=== PATIENT | male | born 1955 | race Caucasian/White ===

== ENCOUNTER → 2020-09-17 12:37 | Outpatient (CLI) | payer MEDICARE, SELFPAY ==
[2020-09-17 13:24] LABS: Basophils # 0.1 K/mm3 (0-0.2); Basophils % 0.9 % (0.1-2.0); Eosinophils # 0.2 K/mm3 (0.0-0.4); Eosinophils % 1.8 % (0.1-12.0); Hematocrit 46.2 % (42.0-52.0); Hemoglobin 15.6 g/dL (14.1-18.0); Lymphocytes # 2.3 K/mm3 (0.7-4.5); Mean Corpuscular HGB Conc 33.7 g/dL (31.8-35.4); Mean Corpuscular Hemoglobin 28.6 pg (27.0-31.2); Mean Platelet Volume 7.9 fl (7.4-10.4); Monocytes # 0.4 K/mm3 (0.1-1.0); Monocytes % 4.7 % (1.7-9.3); Neutrophils # 6.3 K/mm3 (1.8-7.8); Neutrophils % 67.6 % (37.0-80.0); Platelet Count 223 K/mm3 (142-424); Red Blood Count 5.44 M/mm3 (4.60-6.20); Red Cell Distribution Width 15.1 % (11.5-17.5); White Blood Count 9.3 K/mm3 (4.8-10.8)
[2020-09-17 13:35] LABS: Chloride 105 mmol/L (98-107); Potassium 4.7 mmoL/L (3.5-5.1); Sodium 139 mmol/L (136-145)
[2020-09-17 13:37] LABS: Bilirubin,Unconjugated 0.2 mg/dL (0.0-1.1); Blood Urea Nitrogen 20 mg/dl (9-20); Estimated Glomerular Filt Rate 97 ml/min (>60); GFR (African American) 117 ML/MIN (>60)
[2020-09-17 13:38] LABS: Alanine Aminotransferase 24 U/L (12-78); Albumin Level 4.7 g/dl (3.5-5.0); Alkaline Phosphatase 113 U/L (38-126); Anion Gap 17.7 mEq/L (5-15); Aspartate Amino Transferase 29 U/L (17-59); Bilirubin,Direct 0.5 mg/dl (0.0-0.4); Bilirubin,Indirect 0.2 mg/dL (0.0-0.9); Bilirubin,Total 0.7 mg/dl (0.2-1.3); Calcium 10.1 mg/dl (8.4-10.2); Carbon Dioxide 21 mmol/L (22.0-30.0); Chol/HDL Ratio 2.7 (1-3.5); Cholesterol 128 mg/dl (140-200); Glucose 247 mg/dl (74-100); HDL Cholesterol 47 mg/dl (40-60); Total Protein,Serum 7.6 g/dl (6.3-8.2); Triglycerides 286 mg/dl (30-150); VLDL Cholesterol 57 mg/dL (0-40)
[2020-09-17 13:50] LABS: Direct LDL Cholesterol 51.13 mg/dL (100-129)
[2020-09-17 13:55] LABS: Free T4 (Free Thyroxine) 1.01 ng/dl (0.78-2.19)
== END ==
PROVIDERS: Visit Provider Physician Assistant
DX: E78.2 Mixed hyperlipidemia (principal); I10 Essential (primary) hypertension; I25.10 Atherosclerotic heart disease of native coronary artery without angina pectoris; R00.2 Palpitations
CPT/HCPCS: 36415; 80048; 80061; 80076; 84439; 84443; 85025

== ENCOUNTER → 2020-09-27 06:13 | Outpatient (CLI) | payer MEDICARE, SELFPAY ==
--- NOTE | 2020-09-27 | CA_ITS ---
APPROVED REPORT Exam: Exercise Treadmill Technologist: Natalie Hayden, Ht: 5 ft 6 in Wt: 155 lbs BSA: 1.79 m2 HR: 67 bpm BP: 154/101 mmHg Rhythm: NSR, RBBB Medical History Medical History: HTN, Hyperlipidemia, Diabetic ??? Insulin Medications: Aspirin,,,,, Metformin,,,,, Carvedilol,,,,, JaRDiance,,,,, AtorvaASTATIN,,,,, Cardiac Risk Factors: HTN, Hyperlipidemia, Diabetes (insulin) Stress Test Details Test: Mariano HR Resting HR: 76 bpm Max Heart Rate (APMHR): 155 bpm Max HR Achieved: 160 bpm Target HR (85% APMHR): 131 bpm % of APMHR: 103 Recovery HR: 140 bpm BP Resting BP: 153/96 mmHg Max BP: 201/118 mmHg Recovery BP: 198.0/110.0 mmHg ECG Resting ECG: NSR, RBBB Clinical Exercise duration: 06:31 min Highest Stage Achieved: Exercise capacity: 7.0 METs Stress ECG Conclusion Pt excercised 6:31 on Mariano Protocol. Pt did not experince any CP. Rare PVC noted, narrow complex tachycardia in early recovery, PACs in recovery. Allowing for motion artifact and some changes in lead 3. The ST response to exercise is within normal .normal GXT. Myoview images reported separately. Test Summary REST . . . . . . . Sitting REST . . . . . . . Standing REST 04:45 0.0 0.0 76 . 153/ 96 . . Stage 1 01:00 10.0 1.7 119 . . . . Stage 1 02:00 10.0 1.7 124 . . . . Stage 1 03:00 10.0 1.7 126 . 164/ 96 . . Stage 2 01:00 12.0 2.5 134 . . . . Stage 2 02:00 12.0 2.5 146 . . . . Stage 2 . . . . . . . Cardiolite injected Stage 2 03:00 12.0 2.5 160 . . . . Stage 3 00:31 14.0 3.4 76 . . . Stop exercise at 06:31 RECOVERY 01:00 0.0 0.0 145 . . . . RECOVERY 02:00 0.0 0.0 125 . 198/110 . . RECOVERY 03:00 0.0 0.0 118 . 201/118 . . RECOVERY 04:00 0.0 0.0 79 . 201/118 . . RECOVERY 05:00 0.0 0.0 103 . 178/ 85 . . RECOVERY 06:00 0.0 0.0 96 . 155/ 88 . . RECOVERY 07:00 0.0 0.0 78 . 155/ 88 . . RECOVERY 07:21 0.0 0.0 81 . 155/ 88 . . Electronically signed by : Bebeto Keene MD 09/27/2020 14:46:31
--- NOTE | 2020-09-27 06:35 | NM_ITS ---
APPROVED REPORT Exam: Nuclear Stress Test Indication: Chest pain, HTN, DM, CAD Patient Location: Outpatient Stress Tech: Shari Schmidt [place] Tech:Tessie DominguezHARMAN RT(R)(N) Ht: 5 ft 6 in Wt: 150 lbs HR: 76 bpm BP: 153/96 mmHg BSA: 1.77 m2 BMI: 24.2 History: Chest pain, HTN, DM, Procedure: Patient exercised on Mariano protocol 6:31 minutes and sec, resting heart rate 76 bpm, resting blood pressure 153/96 mmHg, with exercise maximum heart rate achived was 160 bpm which is 103 % of the maximum predicted heart rate and blood pressure was 201/118 mmHg. Test was stopped due to SOA. Patient denied any complaint of chest pain. Patient has Adequate exercise capacity, achieved 7.0 METs of workload on treadmill, the blood pressure response to exercise was Hypertensive. Electrocardiogram Resting electrocardiogram shows sinus rhythm right ventricular conduction delay, with exercise there is less than 1.[address] segment depression noted from the baseline EKG. The EKG portion of the exercise Myoview is negative for ischemia. Cardiac Stress and Resting SPECT Images: Cardiac Stress and Resting SPECT images were obtained using technetium 99m Myoview 30.0 mCi stress and 10.56 mCi at rest. Gated SPECT for analysis of segmental wall motion and calculation of the ejection fraction also done. Prone images were also obtained. Cardiac stress and resting SPECT images show uniform myocardial activity without segmental perfusion abnormality, however computer derived ejection fraction is 38% with no regional wall motion abnormality. Right ventricle is mildly enlarged with normal contractility. Conclusion: 1. The EKG portion of the exercise Myoview is negative for ischemia, patient has adequate exercise capacity achieved 7 mets of workload on treadmill, the blood pressure response to exercise was hypertensive, test was stopped due to shortness of breath 2. No scintigraphic evidence of reversible ischemia seen, computer derived ejection fraction is 38% with no regional wall motion abnormality, right ventricle is mildly enlarged with normal contractility. 3. Abnormal exercise Myoview study due to low ejection fraction noted in the study. Electronically signed by : Bebeto Keene MD 09/27/2020 15:13:49
--- NOTE | 2020-09-27 07:21 | CA_ITS ---
APPROVED REPORT Model Maker Firearms: CLAY Laterality: Bilateral Study Quality: Good Indications: family hx of [id number]. Pt is a non-smoker. CAD, Palpitations Doppler Spectral Velocity Analysis ECA (R) 59.90/8.60 cm/s ECA (L) 75.10/17.30 cm/s dICA (R) 78.60/28.90 cm/s dICA (L) 73.20/30.20 cm/s Karlene (R) 40.60/23.00 cm/s Karlene (L) 70.00/27.00 cm/s pICA (R) 45.40/16.60 cm/s pICA (L) 52.00/12.20 cm/s dCCA (R) 68.40/19.20 cm/s dCCA (L) 70.60/16.70 cm/s mCCA (R) 70.60/17.10 cm/s mCCA (L) 66.10/18.00 cm/s pCCA (R) 72.20/14.40 cm/s pCCA (L) 100.80/16.70 cm/s Vert (R) 23.50/3.20 cm/s Vert (L) 33.40/12.20 cm/s ICA/CCA 1.15 ICA/CCA 1.04 Findings Duplex evaluation demonstrates no evidence of hemodynamically significant stenosis of the bilateral Internal Carotid Arteries. Duplex evaluation demonstrates antegrade flow of the bilateral Vertebral Arteries. Duplex evaluation demonstrates stenosis of the right proximal internal carotid artery <20% with PSV <140 cm/sec, EDV <100 cm/sec, and IC/CC Ratio <4.0. Duplex evaluation demonstrates stenosis of the left proximal internal carotid artery <20% with PSV <140 cm/sec, EDV <100 cm/sec, and IC/CC Ratio <4.0. Conclusion Duplex evaluation demonstrates no evidence of hemodynamically significant stenosis of the bilateral Internal Carotid Arteries. Duplex evaluation demonstrates antegrade flow of the bilateral Vertebral Arteries. Duplex evaluation demonstrates stenosis of the right proximal internal carotid artery <20% with PSV <140 cm/sec, EDV <100 cm/sec, and IC/CC Ratio <4.0. Duplex evaluation demonstrates stenosis of the left proximal internal carotid artery <20% with PSV <140 cm/sec, EDV <100 cm/sec, and IC/CC Ratio <4.0. Electronically signed by : Gilberto Veloz MD 09/27/2020 15:07:21
--- NOTE | 2020-09-27 07:21 | CA_ITS ---
APPROVED REPORT EXAM: Comprehensive 2D, Doppler, and color-flow Echocardiogram Swing Saw Operator: [place]ia Fuentes RVT Ht: 5 ft 6 in Wt: 155lbs BSA: 1.79 BP: 1320/92 mmHg Indications: PALPS,CAD,DM,HTN,HLD 2D Dimensions LVOT 2.23 cm (M/F) 1.5-2.5 LA Volume 22.00 mL LA Volume Index 12.29 mL/m2 (M/F) 16-34 M-Mode Dimensions RVDd 3.10 cm (0.9-2.6) LA Diam 2.85 cm (1.9-4.0) LVDd 4.18 cm (3.5-5.7) Ao Diam 3.91 cm (2.0-3.7) LVDs 2.94 cm (3.5-5.7) IVSd 1.53 cm (0.6-1.1) PWd 0.84 cm (0.6-1.1) EF (Teich) 57.10% FS 29.70% EDV (Teich) 77.70 mL TAPSE 1.32 (<1.7) ESV (Teich) 33.30 mL LV Diastology E Decel Time 193.00 (160-240 msec) E/A Ratio 0.7 MED E' 14.00 (< 7 cm/sec) E'/MED E' Ratio 4.47 (>14) LAT E' 6.90 (<10 cm/sec) E/LAT E' Ratio 9.07 (>14) Aortic Valve AO Peak GR. 2.20 mmHg Mitral Valve MV E Max Colton. 63.00 (40-130 cm/s) MV A Velocity 95.00 (40-130 cm/s) E/A Ratio 0.66 MV Decel. Time 193.00 (160-240 ms) MV PHT 57.00 ms Pulmonary Valve PV Peak Velocity 75.00 (50-150 cm/s) Left Ventricle Technically difficult study because of the patient fact in poor acoustic windows. Left atrium is mildly enlarged, left ventricle is normal size, mild concentric left ventricular hypertrophy, visually estimated ejection fraction is approximately 40 to 45%, endocardial surfaces are very poorly visualized. Doppler evidence of impaired LV relaxation seen. Tissue Doppler is inconclusive. Right Ventricle Right atrium and right ventricle mildly enlarged with normal contractility. Aortic Valve Aortic valve is thickened and calcified without Doppler evidence of aortic stenosis or aortic insufficiency. Mitral Valve Mitral valve is grossly normal, there is mild mitral regurgitation. Tricuspid Valve Tricuspid grossly normal, there is mild tricuspid regurgitation. Tricuspid regurgitation jet velocity is inadequate for calculation of the right ventricular systolic pressure. Pulmonic Valve Pulmonic valve is poorly visualized. Great Vessels Aortic root is normal size. Inferior vena cava is poorly visualized. Pericardium No significant pericardial effusion noted. Conclusion 1. Technically difficult study because of the patient factors and poor acoustic windows. 2. Mildly enlarged left atrium, normal left ventricular size, mild concentric left ventricular hypertrophy, visually estimated ejection fraction 40 to 45%, Doppler evidence of impaired LV relaxation seen. 3. Mild mitral and tricuspid regurgitation. 4. No significant pericardial effusion noted. Electronically signed by : Bebeto Keene MD 09/27/2020 15:22:12
--- NOTE | 2020-09-27 13:22 | HMH.ITSHM ---
Current Home Medications as stated by this patient Ashkan Weaver or insurance claim representative. []METFORMIN CARVEDILOL ATORVASTATIN ASA
== END ==
PROVIDERS: PCP Internal Medicine; Visit Provider Physician Assistant
DX: E78.2 Mixed hyperlipidemia (principal); I10 Essential (primary) hypertension; I25.10 Atherosclerotic heart disease of native coronary artery without angina pectoris; R00.2 Palpitations; Z82.49 Family history of ischemic heart disease and other diseases of the circulatory system; R09.89 Other specified symptoms and signs involving the circulatory and respiratory systems
CPT/HCPCS: 78452; 93017; 93306; 93880; A9502

== ENCOUNTER → 2020-10-08 10:51 | Outpatient (CLI) | payer MEDICARE, SELFPAY | PROVIDERS: PCP Internal Medicine; Visit Provider Physician Assistant | DX: R00.2 Palpitations (principal); I25.10 Atherosclerotic heart disease of native coronary artery without angina pectoris; I10 Essential (primary) hypertension; E78.2 Mixed hyperlipidemia | CPT/HCPCS: 93225; 93226 ==

== ENCOUNTER 2020-10-09 07:28 | Day surgery (SDC) | payer MEDICARE, SELFPAY ==
[2020-10-09] VITALS (14 sets, daily range): BP systolic 109–135; BP diastolic 72–100; PULSE 67–86; RESP 18–20; TEMP 36.3–37; O2SAT 95–99; BMI 25.7
--- NOTE | 2020-10-09 07:18 | IR_ITS ---
APPROVED REPORT Patient Location: Outpatient Executive Account Manager: HARMAN Payton RT (R) PROCEDURES Left heart catheterization Left ventriculogram Selective coronary angiogram Drug-eluting stent deployment to the proximal and mid LAD INDICATION Coronary artery disease, Angina pectoris, Ischemic cardiomyopathy ejection fraction 30%, Informed consent was obtained prior to the procedure. COMPLICATIONS None Estimated Blood Loss: Less than 10 mls TECHNIQUE One percent lidocaine used to anesthetize the right anterior aspect of the wrist. The right radial artery was accessed via the Seldinger technique. A 6 Citizen Of [place] sheath was placed in the right radial artery. 2.5 mg of verapamil, 800 mcg of nitroglycerin, 1mg Lidocaine and 5000 U Heparin were given through the arterial sheath. The trap catheter was also used to perform left heart catheterization, left ventriculogram and selective coronary angiogram. At the end of the diagnostic angiogram therapeutic heparin was administered giving a therapeutic ACT and and I Ayla left guide catheter was placed in the left main artery. A Choice PT extra-support wire was placed in the distal LAD. Primary stent delivery cannot be performed therefore a 2.5 x 27 mm balloon was taken at 24 robert to predilate the stenosis. Stenting could still not be performed and an area of focal either in-stent restenosis or previous under deployment of a mid LAD stent prevented delivery of the stent. A 3 mm x 12 mm noncompliant balloon was taken at 24 robert and still did not reduce the stenosis. A 3.25 x 8 mm balloon was then deployed in this area at 28 robert still not reducing the stenosis. A 3.5 x 8 mm noncompliant balloon was deployed at 28 robert still not reducing the stenosis. A 3.75 x 6 mm noncompliant balloon was deployed at 30 robert which eventually reduce the stenosis and allowed delivery of a 3 mm x 38 mm resolute [place] stent to be deployed at 20 robert. An additional 3.5 x 12 mm resolute Liam stent was placed proximal to the first stent yet distal to the first diagonal artery but proximal to the first septal ross carrier driver making it a proximal LAD stent delivery. This was deployed at 20 robert. BASILIO-3 flow was present before and after the procedure. After achieving excellent angiographic results the apparatus was removed the sheath was removed and hemostasis was achieved using TR banding patient was transferred to the postop already in stable condition ANGIOGRAPHIC RESULTS The left main artery Normal The left anterior descending artery Has an ostial 20 to 30% stenosis most likely representing in-stent restenosis followed by an 80 to 90% focal stenosis with additional concentric 80 to 90% mid vessel stenoses. Distal to the stent the LAD is widely patent. The first diagonal artery is a moderate-sized vessel and widely patent. The circumflex artery Is a nondominant yet still large vessel which is proximally patent with 10% stenoses and a 30% stenosis in the proximal portion of the first and second obtuse marginal artery The right coronary artery Is dominant and has proximal tandem 30% stenoses with mild distal 10 to 20% stenosis The MAK ventriculogram reveals Dilated with anterior hypokinesis estimate ejection fraction 40% The left ventricular end-diastolic pressure 20 mmHg IMPRESSION Severe to critical proximal to mid LAD disease as described above Successful stenting the proximal to mid LAD severe to critical disease reduced to 0% with 2 drug-eluting stents placed in a contiguous manner Left ventricular dysfunction Mild elevated LVEDP PLAN 1. Dual antiplatelet therapy 2. Risk factor modification 3. Standard therapy for ischemic heart disease with ischemic left ventricular dysfu
[2020-10-09 08:57] LABS: Coronavirus 19, PCR Not Detected (NotDetected); Influenza A, PCR Not Detected (NotDetected); Influenza B, PCR Not Detected (NotDetected)
[2020-10-09 09:04] LABS: Basophils # 0.1 K/mm3 (0-0.2); Eosinophils # 0.2 K/mm3 (0.0-0.4); Eosinophils % 2.5 % (0.1-12.0); Hematocrit 48.2 % (42.0-52.0); Lymphocytes % 25.9 % (10-50); Mean Corpuscular HGB Conc 33.2 g/dL (31.8-35.4); Mean Corpuscular Volume 87.5 fl (80-94); Mean Platelet Volume 8.2 fl (7.4-10.4); Monocytes # 0.6 K/mm3 (0.1-1.0); Neutrophils % 63.7 % (37.0-80.0); Platelet Count 257 K/mm3 (142-424); Red Blood Count 5.51 M/mm3 (4.60-6.20); Red Cell Distribution Width 14.9 % (11.5-17.5); White Blood Count 7.8 K/mm3 (4.8-10.8)
[2020-10-09 09:06] LABS: Chloride 104 mmol/L (98-107); Potassium 4.6 mmoL/L (3.5-5.1); Sodium 138 mmol/L (136-145)
[2020-10-09 09:09] LABS: Anion Gap 14.6 mEq/L (5-15); Blood Urea Nitrogen 18 mg/dl (9-20); Calcium 9.1 mg/dl (8.4-10.2); Carbon Dioxide 24 mmol/L (22.0-30.0); Creatinine Clearance Estimated 75 mL/min (50-200); Estimated Glomerular Filt Rate 113 ml/min (>60); GFR (African American) 137 ML/MIN (>60); Glucose 200 mg/dl (74-100)
--- NOTE | 2020-10-09 12:23 | SUR.PHASEII ---
1220-report received from JUD Estrella at this time
[2020-10-09 14:03] LABS: CATHL Activated Clotting Time > 400 SEC (74-125)
--- NOTE | 2020-10-09 14:06 | HMH.PHACLD ---
Ashkan Weaver has received discharge medication counseling on the following medications: PATIENT STARTED ON ENTRESTO 24/26 MG BID AND BRILINTA 90 MG BID. PATIENT IS ALREADY TAKING CARVEDILOL 12.5 MG BID, ATORVASTATIN 10 MG HS, AND ASPIRIN 81 MG DAILY.
--- NOTE | 2020-10-09 14:13 | SUR.PHASEII ---
1355-radial band removed at this time, cleaned with chloraprep and sterile 2x2 dressing and tegaderm placed to site, no s/s of drainage, bleeding or hematoma noted at site, vss, pharamacy at bedside at this time for discharge medication instructions
== END 2020-10-09 14:00 | disposition home or self-care (01) ==
LOC: CATHLAB 07:30
PROVIDERS: PCP Internal Medicine; Visit Provider Internal Medicine
DX: R93.1 Abnormal findings on diagnostic imaging of heart and coronary circulation (principal); R94.30 Abnormal result of cardiovascular function study, unspecified; E11.9 Type 2 diabetes mellitus without complications; Z79.84 Long term (current) use of oral hypoglycemic drugs; I25.118 Atherosclerotic heart disease of native coronary artery with other forms of angina pectoris; I25.5 Ischemic cardiomyopathy; T82.855A Stenosis of coronary artery stent, initial encounter; I10 Essential (primary) hypertension; Y83.1 Surgical operation with implant of artificial internal device as the cause of abnormal reaction of the patient, or of later complication, without mention of misadventure at the time of the procedure; Z20.822 Contact with and (suspected) exposure to COVID-19
CPT/HCPCS: 80048; 85025; 85347; 92928; 93458; 99152; 99153; C1725; C1769; C1874; C1876; C9600; J1644; U0003

== ENCOUNTER 2020-10-16 10:05 | Outpatient (RCR) | payer MEDICARE, SELFPAY | END 2020-12-13 10:10 | disposition home or self-care (01) | LOC: PT 10:05 | PROVIDERS: Visit Provider Internal Medicine | DX: I25.10 Atherosclerotic heart disease of native coronary artery without angina pectoris (principal); Z95.5 Presence of coronary angioplasty implant and graft | CPT/HCPCS: 93798 ==

== ENCOUNTER → 2020-10-22 07:43 | Outpatient (CLI) | payer MEDICARE, SELFPAY ==
[2020-10-22 09:25] LABS: Basophils # 0.1 K/mm3 (0-0.2); Basophils % 0.8 % (0.1-2.0); Eosinophils # 0.2 K/mm3 (0.0-0.4); Eosinophils % 2.4 % (0.1-12.0); Hematocrit 46.6 % (42.0-52.0); Hemoglobin 15.4 g/dL (14.1-18.0); Lymphocytes % 26.3 % (10-50); Mean Corpuscular Hemoglobin 29.6 pg (27.0-31.2); Mean Corpuscular Volume 89.7 fl (80-94); Mean Platelet Volume 7.1 fl (7.4-10.4); Monocytes # 0.6 K/mm3 (0.1-1.0); Monocytes % 8.5 % (1.7-9.3); Neutrophils # 4.6 K/mm3 (1.8-7.8); Platelet Count 218 K/mm3 (142-424); Red Cell Distribution Width 14.8 % (11.5-17.5); White Blood Count 7.4 K/mm3 (4.8-10.8)
[2020-10-22 10:30] LABS: Chloride 103 mmol/L (98-107); Potassium 4.5 mmoL/L (3.5-5.1); Sodium 137 mmol/L (136-145)
[2020-10-22 10:33] LABS: Anion Gap 15.5 mEq/L (5-15); Blood Urea Nitrogen 24 mg/dl (9-20); Calcium 8.9 mg/dl (8.4-10.2); Carbon Dioxide 23 mmol/L (22.0-30.0); Estimated Glomerular Filt Rate 97 ml/min (>60); GFR (African American) 117 ML/MIN (>60); Glucose 184 mg/dl (74-100)
== END ==
PROVIDERS: Visit Provider Internal Medicine
DX: I25.10 Atherosclerotic heart disease of native coronary artery without angina pectoris (principal); Z95.5 Presence of coronary angioplasty implant and graft
CPT/HCPCS: 36415; 80048; 85025

== ENCOUNTER → 2020-12-05 11:29 | Outpatient (CLI) | payer MEDICARE, SELFPAY | PROVIDERS: PCP Internal Medicine; Visit Provider Nurse Practitioner | DX: Z20.822 Contact with and (suspected) exposure to COVID-19 (principal) | CPT/HCPCS: C9803; U0003; U0005 ==

== ENCOUNTER 2020-12-21 09:58 | Emergency (ER) | payer MEDICARE, SELFPAY ==
[2020-12-21] VITALS (8 sets, daily range): BP systolic 102–145; BP diastolic 68–92; PULSE 75–119; RESP 18–28; TEMP 36.8; O2SAT 91–95; BMI 25.8
--- NOTE | 2020-12-21 10:06 | ECG_ITS ---
APPROVED REPORT Exam: Resting ECG HR:118 bpm ECG Measurements Heart Rate 118 AXES TN 156 P -22 QRSd 132 QRS 125 QT 344 T -11 QTc 482 Conclusion Sinus tachycardia Right bundle branch block Abnormal ECG Electronically signed by : Jamal Oleary MD 12/21/2020 13:50:22
--- NOTE | 2020-12-21 10:23 | XR_ITS ---
PROCEDURE: XR CHEST PORTABLE CLINICAL HISTORY: cough COMPARISON: No exams were available for comparison FINDINGS: The cardiomediastinal silhouette and pulmonary vascularity are within normal limits. There is mild aortic tortuosity. The lungs are clear without infiltrates, suspicious nodules, or pleural effusions. There monitor lines overlying the chest. No acute bony abnormalities. IMPRESSION: No acute findings. Dictated by: Dr. Hussein Brown MD 12/21/2020 10:56 Dr. Hussein Brown MD in [place] 12/21/2020 10:56
--- NOTE | 2020-12-21 10:34 | HMH.EDEPIS ---
ED Disposition Clinical Impression: Epistaxis Atrial flutter Qualifiers: Atrial flutter type: typical Qualified Code(s): I48.3 - Typical atrial flutter Disposition: Home, Self-Care Condition on Discharge: Good Instructions: DI for Nosebleed Referrals: Yunior Langford [Primary Care Provider] - - Critical Care Critical Care Time: No Attestation: On 12/21/20, the high probability of a clinically significant, sudden or life threatening deterioration of the following system(s) required my full and direct attention, intervention and personal management. The time I documented below is in addition to time spent performing reported procedures but includes the following listed in this critical care notation. Medical Decision Making - Medical Records Medical records reviewed: Yes: I reviewed the patient's medical records. - Wayne Inquiry Pt receiving controlled substance: No Vital Signs: 12/21/20 09:59 12/21/20 10:30 12/21/20 11:01 Temperature 98.3 F Temperature Source Oral Pulse Rate 119 H 111 H Pulse Rate [Left Radial] 118 H Respiratory Rate 18 18 19 Blood Pressure 105/68 L 117/79 Blood Pressure [Left Arm] 102/79 L Blood Pressure Mean 76 87 Blood Pressure Mean [Left Arm] 86 Blood Pressure Source [Left Arm] Automatic Cuff Blood Pressure Position [Left Arm] Sitting 02 Sat by Pulse Oximetry 94 L 94 L 95 Oxygen Delivery Method Room Air 12/21/20 11:23 12/21/20 11:26 12/21/20 11:30 Temperature Temperature Source Pulse Rate 115 H 100 H 100 H Pulse Rate [Left Radial] Respiratory Rate 28 H 22 20 Blood Pressure 142/88 H 141/85 H 139/92 H Blood Pressure [Left Arm] Blood Pressure Mean 97 95 102 Blood Pressure Mean [Left Arm] Blood Pressure Source [Left Arm] Blood Pressure Position [Left Arm] 02 Sat by Pulse Oximetry 93 L 91 L 94 L Oxygen Delivery Method 12/21/20 12:00 Temperature Temperature Source Pulse Rate 80 Pulse Rate [Left Radial] Respiratory Rate 22 Blood Pressure 145/83 H Blood Pressure [Left Arm] Blood Pressure Mean 92 Blood Pressure Mean [Left Arm] Blood Pressure Source [Left Arm] Blood Pressure Position [Left Arm] 02 Sat by Pulse Oximetry 93 L Oxygen Delivery Method - Lab Data Lab Results 12/21/20 10:34: WBC 6.8, RBC 4.69, Hgb 13.5 L, Hct 41.7 L, MCV 88.8, MCH 28.7, MCHC 32.3, RDW 15.5, Plt Count 262, MPV 9.8, Neut % (Auto) 64.8, Lymph % (Auto) 21.3, Pershing % (Auto) 11.4 H, Eos % (Auto) 1.8, Baso % (Auto) 0.6, Neut # (Auto) 4.4, Lymph # (Auto) 1.5, Pershing # (Auto) 0.8, Eos # (Auto) 0.1, Baso # (Auto) 0.0 12/21/20 10:34: Sodium 132 L, Potassium 3.7, Chloride 99, Carbon Dioxide 20 L, Anion Gap 16.7 H, BUN 20, Creatinine 1.00, Estimated Creat Clear 76, Estimated GFR 75, Est GFR ( Amer) 91, Glucose 256 H, Calcium 8.3 L, Total Bilirubin 0.8, AST 31, ALT 23, Alkaline Phosphatase 85, Troponin I < 0.01, Total Protein 7.1, Albumin 4.0, Globulin 3.1, Albumin/Globulin Ratio 1.3 Result diagrams: 12/21/20 10:34 12/21/20 10:34 Orders (Tests/Meds): ED MEDICATIONS Discontinued Medications Generic Name Dose Route Start Last Admin Trade Name Danyq PRN Reason Stop Dose Admin Diltiazem HCl 10 mg 12/21/20 10:16 12/21/20 11:20 Diltiazem 25mg/5ml Vial IV 12/21/20 10:17 10 mg ONCE ONE Administration Diltiazem HCl 10 mg 12/21/20 11:10 Diltiazem 25mg/5ml Vial IV 12/21/20 11:11 ONCE ONE ORDERS Category Date Time Status Troponin I Q3H Lab 12/21/20 13:30 Ordered Troponin I Q3H Lab 12/21/20 16:30 Ordered - Radiology Data #1 Image(s): Chest Image Reviewed: Yes I reviewed the patient's radiology results, Yes I reviewed the patient's radiology image, Yes I have reviewed radiologist's interpretation Preliminary Findings: Normal/NAD - ECG Data Tracing #1 I reviewed this ECG and interpreted as documented below: ECG initial impression date: 12/21/20 ECG initial impression time: 10:06 Arrhythmias prese
[2020-12-21 10:44] LABS: Basophils % 0.6 % (0.1-2.0); Eosinophils # 0.1 K/mm3 (0.0-0.4); Eosinophils % 1.8 % (0.1-12.0); Hematocrit 41.7 % (42.0-52.0); Hemoglobin 13.5 g/dL (14.1-18.0); Lymphocytes # 1.5 K/mm3 (0.7-4.5); Lymphocytes % 21.3 % (10-50); Mean Corpuscular HGB Conc 32.3 g/dL (31.8-35.4); Mean Corpuscular Hemoglobin 28.7 pg (27.0-31.2); Mean Corpuscular Volume 88.8 fl (80-94); Mean Platelet Volume 9.8 fl (7.4-10.4); Monocytes # 0.8 K/mm3 (0.1-1.0); Monocytes % 11.4 % (1.7-9.3); Neutrophils # 4.4 K/mm3 (1.8-7.8); Neutrophils % 64.8 % (37.0-80.0); Platelet Count 262 K/mm3 (142-424); Red Blood Count 4.69 M/mm3 (4.60-6.20); Red Cell Distribution Width 15.5 % (11.5-17.5); White Blood Count 6.8 K/mm3 (4.8-10.8)
[2020-12-21 10:58] LABS: Alanine Aminotransferase 23 U/L (12-78); Albumin/Globulin Ratio 1.3 (1.1-1.8); Alkaline Phosphatase 85 U/L (38-126); Anion Gap 16.7 mEq/L (5-15); Aspartate Amino Transferase 31 U/L (17-59); Bilirubin,Total 0.8 mg/dl (0.2-1.3); Blood Urea Nitrogen 20 mg/dl (9-20); Calcium 8.3 mg/dl (8.4-10.2); Carbon Dioxide 20 mmol/L (22.0-30.0); Chloride 99 mmol/L (98-107); Creatinine Clearance Estimated 76 mL/min (50-200); Estimated Glomerular Filt Rate 75 ml/min (>60); GFR (African American) 91 ML/MIN (>60); Globulin 3.1 g/dL (1.3-3.2); Glucose 256 mg/dl (74-100); Potassium 3.7 mmoL/L (3.5-5.1); Sodium 132 mmol/L (136-145); Total Protein,Serum 7.1 g/dl (6.3-8.2)
[2020-12-21 11:11] LABS: Troponin I < 0.01 ng/ml (0.00-0.034)
== END 2020-12-21 12:38 | disposition home or self-care (01) ==
PROVIDERS: Emergency Provider Emergency Medicine; PCP Internal Medicine
DX: R04.0 Epistaxis (principal); I48.3 Typical atrial flutter; E11.65 Type 2 diabetes mellitus with hyperglycemia; I25.10 Atherosclerotic heart disease of native coronary artery without angina pectoris; I10 Essential (primary) hypertension; E78.5 Hyperlipidemia, unspecified
CPT/HCPCS: 71045; 80053; 84484; 85025; 93005; 96374; 99283

== ENCOUNTER → 2021-03-12 12:11 | Outpatient (CLI) | payer MEDICARE, SELFPAY ==
[2021-03-12 15:00] LABS: Chloride 102 mmol/L (98-107); Potassium 4.1 mmoL/L (3.5-5.1); Sodium 135 mmol/L (136-145)
[2021-03-12 15:03] LABS: Alanine Aminotransferase 28 U/L (12-78); Albumin Level 4.4 g/dl (3.5-5.0); Albumin/Globulin Ratio 1.7 (1.1-1.8); Alkaline Phosphatase 77 U/L (38-126); Anion Gap 12.1 mEq/L (5-15); Aspartate Amino Transferase 33 U/L (17-59); Bilirubin,Total 0.7 mg/dl (0.2-1.3); Blood Urea Nitrogen 20 mg/dl (9-20); Carbon Dioxide 25 mmol/L (22.0-30.0); Cholesterol 75 mg/dl (140-200); Estimated Glomerular Filt Rate 97 ml/min (>60); GFR (African American) 117 ML/MIN (>60); Globulin 2.6 g/dL (1.3-3.2); Triglycerides 67 mg/dl (30-150); VLDL Cholesterol 13 mg/dL (0-40)
[2021-03-12 15:04] LABS: Calcium 9.6 mg/dl (8.4-10.2); Chol/HDL Ratio 1.9 (1-3.5); Glucose 105 mg/dl (74-100); HDL Cholesterol 40 mg/dl (40-60)
[2021-03-12 15:12] LABS: Hemoglobin A1C 10.6 % (4.0-6.0)
[2021-03-12 15:15] LABS: Direct LDL Cholesterol < 30.00 mg/dL (100-129)
== END ==
PROVIDERS: Visit Provider Internal Medicine
DX: I10 Essential (primary) hypertension (principal); I25.10 Atherosclerotic heart disease of native coronary artery without angina pectoris; E78.5 Hyperlipidemia, unspecified; E11.59 Type 2 diabetes mellitus with other circulatory complications; Z79.84 Long term (current) use of oral hypoglycemic drugs
CPT/HCPCS: 80053; 80061; 83036

== ENCOUNTER → 2021-09-11 12:51 | Outpatient (CLI) | payer MEDICARE, SELFPAY ==
[2021-09-11 13:48] LABS: Creatinine,Urine Random 72 mg/dL (Not Estab.)
[2021-09-11 13:53] LABS: Microalbumin/Creatinine Ratio 34.8
[2021-09-11 14:01] LABS: Alanine Aminotransferase 27 U/L (12-78); Albumin/Globulin Ratio 1.4 (1.1-1.8); Alkaline Phosphatase 97 U/L (38-126); Anion Gap 13.4 mEq/L (5-15); Aspartate Amino Transferase 26 U/L (17-59); Bilirubin,Total 0.3 mg/dl (0.2-1.3); Blood Urea Nitrogen 13 mg/dl (9-20); Calcium 9.1 mg/dl (8.4-10.2); Carbon Dioxide 21 mmol/L (22.0-30.0); Chloride 107 mmol/L (98-107); Estimated Glomerular Filt Rate 97 ml/min (>60); GFR (African American) 117 ML/MIN (>60); Globulin 2.8 g/dL (1.3-3.2); Glucose 146 mg/dl (74-100); Potassium 4.4 mmoL/L (3.5-5.1); Sodium 137 mmol/L (136-145); Total Protein,Serum 6.8 g/dl (6.3-8.2)
[2021-09-11 14:03] LABS: Basophils # 0.1 K/mm3 (0-0.2); Basophils % 1.2 % (0.1-2.0); Eosinophils # 0.2 K/mm3 (0.0-0.4); Eosinophils % 2.4 % (0.1-12.0); Hematocrit 44.9 % (42.0-52.0); Hemoglobin 13.9 g/dL (14.1-18.0); Lymphocytes # 2.2 K/mm3 (0.7-4.5); Lymphocytes % 27.2 % (10-50); Mean Corpuscular Hemoglobin 25.5 pg (27.0-31.2); Mean Corpuscular Volume 82.2 fl (80-94); Mean Platelet Volume 7.9 fl (7.4-10.4); Monocytes # 0.6 K/mm3 (0.1-1.0); Monocytes % 7.5 % (1.7-9.3); Neutrophils % 61.7 % (37.0-80.0); Platelet Count 293 K/mm3 (142-424); Red Blood Count 5.46 M/mm3 (4.60-6.20); Red Cell Distribution Width 17.4 % (11.5-17.5); White Blood Count 8.2 K/mm3 (4.8-10.8)
[2021-09-11 14:47] LABS: Hemoglobin A1C 8.5 % (4.0-6.0)
[2021-09-11 15:34] LABS: Chol/HDL Ratio 2.8 (1-3.5); Cholesterol 91 mg/dl (140-200); HDL Cholesterol 32 mg/dl (40-60); Triglycerides 194 mg/dl (30-150); VLDL Cholesterol 39 mg/dL (0-40)
[2021-09-11 15:44] LABS: Direct LDL Cholesterol 35.51 mg/dL (100-129)
== END ==
PROVIDERS: PCP Internal Medicine; Visit Provider Internal Medicine
DX: I25.10 Atherosclerotic heart disease of native coronary artery without angina pectoris (principal); E11.59 Type 2 diabetes mellitus with other circulatory complications; I10 Essential (primary) hypertension; E78.5 Hyperlipidemia, unspecified; Z79.84 Long term (current) use of oral hypoglycemic drugs; Z12.5 Encounter for screening for malignant neoplasm of prostate
CPT/HCPCS: 80053; 80061; 82043; 82570; 83036; 85025; G0103

== ENCOUNTER 2021-11-02 08:34 | Emergency (ER) | payer MEDICARE, SELFPAY ==
[2021-11-02 08:53] VITALS: BP 102/68; PULSE 98; RESP 17; TEMP 36.7; O2SAT 98; BMI 27.1
--- NOTE | 2021-11-02 08:59 | EXP.UTC ---
Discharge Plan Disposition Patient Disposition: Home, Self-Care Condition: Good Prescriptions Prescriptions: No Action metformin 1,000 mg tablet 1,000 mg PO BID Tradjenta 5 mg tablet 5 mg PO DAILY Jardiance 10 mg tablet 10 mg PO DAILY aspirin 81 mg tablet,delayed release (DR/EC) 81 mg PO DAILY ivabradine 5 mg tablet 5 mg PO BID Qty: 60 5RF Rx Instructions: must administer with a meal/food Brilinta 90 mg tablet 90 mg PO BID metoprolol succinate 200 mg tablet extended release 24 hr See Rx Instructions .ROUTE .COMPLEX Rx Instructions: TAKE 1/2 TABLET BY MOUTH EVERY DAY IN THE MORNING AND TAKE ONE TABLET BY MOUTH EVERY DAY IN THE EVENING atorvastatin 40 mg tablet See Rx Instructions .ROUTE .COMPLEX Rx Instructions: TAKE ONE TABLET BY MOUTH EVERY DAY diltiazem HCl 120 mg capsule,extended release 24hr See Rx Instructions .ROUTE .COMPLEX Rx Instructions: TAKE ONE CAPSULE BY MOUTH EVERY DAY Entresto 24-26 mg tablet 1 tab PO BID Referrals Follow up/Referrals: Yunior Langford MD [Primary Care Provider] - See instructions Helga Murrell MD [Referring] - See instructions Activity Restrictions/Add. Instructions Additional Instructions/Restrictions: Take tylenol for pain. Follow up with your regular doctor. I put in a referral to an ENT doctor (Dr. Murrell) that is here at this hospital in the speciality clinic. Please call her and get an appointment unless you already have an ENT physician. If you already have one then please call and get an appointment to be rechecked there. If your nose starts back to bleeding after being discharged from here, please hold pressure on it and return to the ER or [facility] here. GO TO THE ER FOR ANY WORSENING SYMPTOMS Clinical Impressions Clinical Impression: Epistaxis, recurrent Stand Alone Forms Stand Alone Forms: Work/School Release Instructions Patient Instructions: Nosebleed, DI for Nosebleed Discharge ED Provider: Giuliano Mckeon [place] HPI General Stated complaint: nose bleed Mode of Arrival: Ambulatory Source of Information: Patient Limitations: No Limitations Time Seen by Provider: 11/02/21 08:59 Description of Symptoms (Recalled from Triage Doc. by RN): pt comes in with c/o nose bleed. pt states his nose has been bleeding off and on since 0700 11/01/21. pt states that he gets a nose bleed every couple of months. HEENT Symptoms (Recalled from RN notes): Yes Resp Symptoms (Recalled from RN notes): No Skin Symptoms (Recalled from RN notes): No MS Symptoms (Recalled from RN notes): No Functional Status (Recalled from RN notes): n/a History of Present Illness Provider Complaint: He has had bleeding from his left nostril on and off since yesterday morning. He has had nose bleeds like this in the fall of the year in the past. He had to have an area of this same affected nostril cauterized last year. He denies any injury to his nose. He denies any excessive bruising or bleeding elsewhere. He takes a baby aspirin daily. He already took his dose of aspirin today. Related Data Home Medications Medication Instructions Recorded Confirmed metformin 1,000 mg tablet 1,000 mg PO BID Diabetes 02/27/17 11/02/21 aspirin 81 mg tablet,delayed 81 mg PO DAILY heart health 09/17/20 11/02/21 release empagliflozin 10 mg tablet 10 mg PO DAILY Diabetes 09/17/20 11/02/21 (Jardiance) linagliptin 5 mg tablet (Tradjenta) 5 mg PO DAILY 11/01/20 05/24/21 atorvastatin 40 mg tablet See Rx Instructions .Route 11/02/21 11/02/21 .COMPLEX Cholesterol diltiazem HCl 120 mg See Rx Instructions .Route 11/02/21 11/02/21 capsule,extended release 24 hr .COMPLEX High blood pressure metoprolol succinate 200 mg See Rx Instructions .Route 11/02/21 11/02/21 tablet,extended release 24 hr .COMPLEX High blood pressure sacubitril 24 mg-valsartan 26 mg 1 tab PO BID Heart failure 11/02/21 11/02/21 tablet (Entresto) tic
[2021-11-02 09:52] LABS: Basophils # 0.2 K/mm3 (0-0.2); Basophils % 1.5 % (0.1-2.0); Eosinophils # 0.3 K/mm3 (0.0-0.4); Eosinophils % 2.2 % (0.1-12.0); Hemoglobin 14.3 g/dL (14.1-18.0); Lymphocytes # 2.3 K/mm3 (0.7-4.5); Lymphocytes % 17.8 % (10-50); Mean Corpuscular HGB Conc 31.7 g/dL (31.8-35.4); Mean Corpuscular Hemoglobin 26.2 pg (27.0-31.2); Mean Corpuscular Volume 82.7 fl (80-94); Mean Platelet Volume 7.7 fl (7.4-10.4); Monocytes # 0.8 K/mm3 (0.1-1.0); Monocytes % 6.4 % (1.7-9.3); Neutrophils # 9.4 K/mm3 (1.8-7.8); Neutrophils % 72.1 % (37.0-80.0); Platelet Count 364 K/mm3 (142-424); Red Blood Count 5.45 M/mm3 (4.60-6.20); Red Cell Distribution Width 19.7 % (11.5-17.5)
[2021-11-02 11:58] VITALS: BP 102/68; PULSE 98; RESP 17; TEMP 36.7
== END 2021-11-02 12:02 | disposition home or self-care (01) ==
PROVIDERS: Emergency Provider Nurse Practitioner Family; PCP Internal Medicine
DX: R04.0 Epistaxis (principal)
CPT/HCPCS: 85025; 99212; G0463

== ENCOUNTER → 2021-12-17 14:59 | Outpatient (CLI) | payer MEDICARE, SELFPAY ==
--- NOTE | 2021-12-17 15:01 | CA_ITS ---
APPROVED REPORT EXAM: Comprehensive 2D, Doppler, and color-flow Echocardiogram Communications Equipment Installer: Albania Fuentes RVT Ht: 5 ft 6 in Wt: 174lbs BSA: 1.88 BP: 113/59 mmHg Indications: a-fib,rbbb,cad,htn,hld,palps,cm,soa 2D Dimensions LVOT 2.00 cm (M/F) 1.5-2.5 LA Volume 31.20 mL LA Volume Index 16.59 mL/m2 (M/F) 16-34 M-Mode Dimensions RVDd 2.58 cm (0.9-2.6) LA Diam 3.35 cm (1.9-4.0) LVDd 4.36 cm (3.5-5.7) Ao Diam 4.17 cm (2.0-3.7) LVDs 3.13 cm (3.5-5.7) IVSd 1.21 cm (0.6-1.1) PWd 0.84 cm (0.6-1.1) EF (Teich) 54.80% FS 28.20% EDV (Teich) 85.80 mL TAPSE 2.48 (<1.7) ESV (Teich) 38.80 mL LV Diastology E Decel Time 220.00 (160-240 msec) E/A Ratio 0.8 MED E' 5.70 (< 7 cm/sec) E'/MED E' Ratio 13.54 (>14) LAT E' 8.40 (<10 cm/sec) E/LAT E' Ratio 9.19 (>14) Aortic Valve AO Peak GR. 5.30 mmHg Mitral Valve MV E Max Colton. 77.00 (40-130 cm/s) MV A Velocity 98.00 (40-130 cm/s) E/A Ratio 0.79 MV Decel. Time 220.00 (160-240 ms) MV PHT 64.00 ms Pulmonary Valve PV Peak Velocity 80.00 (50-150 cm/s) Tricuspid Valve TR P. Velocity 183.00 cm/s RAP Estimate 10.00 mmHg RVSP 23.50 mmHg Left Ventricle Left atrium is mildly enlarged, left ventricle is normal size mild concentric left ventricular hypertrophy, estimated ejection fraction 55% with no regional wall motion abnormality, diastolic parameters are inconclusive. Right Ventricle Right atrium and right ventricle are mildly enlarged with normal contractility. Aortic Valve Aortic valve is thickened and calcified without aortic stenosis or aortic insufficiency. Mitral Valve Mitral valve is grossly normal, there is mild mitral regurgitation. Tricuspid Valve Tricuspid valve grossly normal, there is mild tricuspid regurgitation, tricuspid regurgitation jet velocity is inadequate for calculation of the right ventricular systolic pressure. Pulmonic Valve Pulmonic valve is poorly visualized. Great Vessels Aortic root is normal size. Inferior vena cava is poorly visualized. Pericardium No significant pericardial effusion noted. Conclusion 1. Mild biatrial enlargement, normal left ventricular size, mild concentric left ventricular hypertrophy, estimated ejection fraction 55% with no regional wall motion abnormality, diastolic parameters are inconclusive. 2. Mildly enlarged right ventricle with normal contractility. 3. Mild mitral and tricuspid regurgitation. 4. No significant pericardial effusion. 5. Inferior vena cava is poorly visualized. Electronically signed by : Bebeto Keene MD 12/17/2021 19:52:58
== END ==
PROVIDERS: PCP Internal Medicine; Visit Provider Internal Medicine Cardiovascular Disease
DX: E78.2 Mixed hyperlipidemia (principal); I10 Essential (primary) hypertension; I25.10 Atherosclerotic heart disease of native coronary artery without angina pectoris; I25.5 Ischemic cardiomyopathy; I48.20 Chronic atrial fibrillation, unspecified; I48.3 Typical atrial flutter; I50.23 Acute on chronic systolic (congestive) heart failure; R94.31 Abnormal electrocardiogram [ECG] [EKG]
CPT/HCPCS: 93306

== ENCOUNTER 2022-01-13 08:19 | Day surgery (SDC) | payer MEDICARE, SELFPAY ==
[2022-01-13 08:24] VITALS: BMI 27.9
[2022-01-13 08:49] VITALS: BP 125/74; PULSE 76; PULSE 79; RESP 18; O2SAT 99
--- NOTE | 2022-01-13 09:03 | ECG_ITS ---
APPROVED REPORT Exam: Resting ECG HR:74 bpm ECG Measurements Heart Rate 74 AXES NM 193 P -32 QRSd 135 QRS 27 QT 368 T 0 QTc 395 Conclusion SINUS RHYTHM WITH FREQUENT SUPRAVENTRICULAR PREMATURE COMPLEXES RIGHT BUNDLE BRANCH BLOCK [120+ ms QRS DURATION, UPRIGHT V1, 40+ ms S IN I/aVL/V4/V5/V6] ABNORMAL ECG UNCONFIRMED REPORT Electronically signed by : Jamal Oleary MD 01/13/2022 19:58:28
--- NOTE | 2022-01-13 09:16 | SUR.OPER ---
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
== END 2022-01-13 09:20 | disposition home or self-care (01) ==
LOC: CATHLAB 08:21
PROVIDERS: Internal Medicine; PCP Internal Medicine; Visit Provider Internal Medicine Cardiovascular Disease
DX: I48.0 Paroxysmal atrial fibrillation (principal); Z53.09 Procedure and treatment not carried out because of other contraindication
CPT/HCPCS: 93005

== ENCOUNTER → 2022-03-14 13:24 | Outpatient (CLI) | payer MEDICARE, SELFPAY ==
[2022-03-14 15:55] LABS: Alanine Aminotransferase 27 U/L (12-78); Albumin Level 4.2 g/dl (3.5-5.0); Albumin/Globulin Ratio 1.7 (1.1-1.8); Alkaline Phosphatase 81 U/L (38-126); Anion Gap 13.4 mEq/L (5-15); Aspartate Amino Transferase 28 U/L (17-59); Bilirubin,Total 0.7 mg/dl (0.2-1.3); Blood Urea Nitrogen 17 mg/dl (9-20); Calcium 8.5 mg/dl (8.4-10.2); Carbon Dioxide 23 mmol/L (22.0-30.0); Chloride 107 mmol/L (98-107); Chol/HDL Ratio 2.7 (1-3.5); Cholesterol 77 mg/dl (140-200); Estimated Glomerular Filt Rate 97 ml/min (>60); GFR (African American) 117 ML/MIN (>60); Globulin 2.5 g/dL (1.3-3.2); Glucose 124 mg/dl (74-100); HDL Cholesterol 29 mg/dl (40-60); Potassium 4.4 mmoL/L (3.5-5.1); Sodium 139 mmol/L (136-145); Total Protein,Serum 6.7 g/dl (6.3-8.2); Triglycerides 111 mg/dl (30-150); VLDL Cholesterol 22 mg/dL (0-40)
[2022-03-14 16:08] LABS: Direct LDL Cholesterol 32.92 mg/dL (100-129)
== END ==
PROVIDERS: PCP Internal Medicine; Visit Provider Internal Medicine
DX: I25.10 Atherosclerotic heart disease of native coronary artery without angina pectoris (principal); I10 Essential (primary) hypertension; E11.59 Type 2 diabetes mellitus with other circulatory complications; E78.5 Hyperlipidemia, unspecified; F32.9 Major depressive disorder, single episode, unspecified; Z79.4 Long term (current) use of insulin
CPT/HCPCS: 80053; 80061; 83036

== ENCOUNTER → 2022-06-11 11:43 | Outpatient (CLI) | payer MEDICARE, SELFPAY | PROVIDERS: PCP Internal Medicine; Visit Provider Internal Medicine | DX: E11.59 Type 2 diabetes mellitus with other circulatory complications (principal); E11.42 Type 2 diabetes mellitus with diabetic polyneuropathy; I10 Essential (primary) hypertension; Z79.4 Long term (current) use of insulin | CPT/HCPCS: 83036 ==

== ENCOUNTER → 2022-07-14 14:55 | Outpatient (CLI) | payer MEDICARE, SELFPAY ==
--- NOTE | 2022-07-14 15:04 | XR_ITS ---
FINAL REPORT CLINICAL HISTORY: swelling of RLE, ankle and foot after fall FINDINGS: AP, oblique, and lateral views of the right ankle were obtained. There is no prior exam for comparison. There is no fracture or dislocation. The ankle mortise is intact. Soft tissue swelling is present. IMPRESSION: No acute osseous abnormality of the right ankle. Reviewed, Interpreted and Dictated by Tita Cano MD Transcribed by Korin Haque Authenticated and [facility]
--- NOTE | 2022-07-14 15:04 | XR_ITS ---
FINAL REPORT CLINICAL HISTORY: right lower ext swelling after fall FINDINGS: AP, oblique and lateral views of the right foot were obtained. There is no prior exam for comparison. There is no acute fracture or dislocation. The joint spaces are preserved. Soft tissues are normal. IMPRESSION: No acute osseous abnormality of the right foot. Reviewed, Interpreted and Dictated by Tita Cano MD Transcribed by Korin Haque Authenticated and [facility]
--- NOTE | 2022-07-14 15:04 | XR_ITS ---
FINAL REPORT CLINICAL HISTORY: right leg swelling post fall FINDINGS: AP and lateral views of the right tibia and fibula were obtained. There is no prior exam for comparison. There is no acute fracture of the right tibia or fibula. The knee and ankle appear intact. Lower leg, worse at the ankle. IMPRESSION: No acute osseous abnormality of the right tibia or fibula. Reviewed, Interpreted and Dictated by Tita Cano MD Transcribed by Korin Haque Authenticated and . [facility]
== END ==
PROVIDERS: PCP Internal Medicine; Visit Provider Physician Assistant
DX: M79.671 Pain in right foot (principal); M25.571 Pain in right ankle and joints of right foot; M25.471 Effusion, right ankle; M79.89 Other specified soft tissue disorders
CPT/HCPCS: 73590; 73600; 73630

== ENCOUNTER → 2022-09-19 11:22 | Outpatient (CLI) | payer MEDICARE, SELFPAY ==
[2022-09-19 13:05] LABS: Creatinine,Urine Random 39 mg/dL (Not Estab.)
[2022-09-19 13:08] LABS: Microalbumin/Creatinine Ratio 37.4
[2022-09-19 13:10] LABS: Basophils % 0.5 % (0.1-2.0); Eosinophils # 0.2 K/mm3 (0.0-0.4); Eosinophils % 2.3 % (0.1-12.0); Hematocrit 46.4 % (42.0-52.0); Hemoglobin 14.7 g/dL (14.1-18.0); Lymphocytes # 2.5 K/mm3 (0.7-4.5); Lymphocytes % 30.5 % (10-50); Mean Corpuscular HGB Conc 31.7 g/dL (31.8-35.4); Mean Corpuscular Hemoglobin 23.6 pg (27.0-31.2); Mean Corpuscular Volume 74.4 fl (80-94); Mean Platelet Volume 8.7 fl (7.4-10.4); Monocytes # 0.7 K/mm3 (0.1-1.0); Monocytes % 8.5 % (1.7-9.3); Neutrophils # 4.8 K/mm3 (1.8-7.8); Neutrophils % 58.2 % (37.0-80.0); Platelet Count 219 K/mm3 (142-424); Red Blood Count 6.24 M/mm3 (4.60-6.20); Red Cell Distribution Width 20.1 % (11.5-17.5); White Blood Count 8.2 K/mm3 (4.8-10.8)
[2022-09-19 13:39] LABS: Chloride 103 mmol/L (98-107)
[2022-09-19 13:40] LABS: Potassium 4.6 mmoL/L (3.5-5.1); Sodium 136 mmol/L (136-145)
[2022-09-19 13:42] LABS: Alanine Aminotransferase 34 U/L (12-78); Albumin/Globulin Ratio 1.3 (1.1-1.8); Alkaline Phosphatase 163 U/L (38-126); Aspartate Amino Transferase 33 U/L (17-59); Bilirubin,Total 0.8 mg/dl (0.2-1.3); Blood Urea Nitrogen 18 mg/dl (9-20); Carbon Dioxide 21 mmol/L (22.0-30.0); Estimated Glomerular Filt Rate 112 ml/min (>60); GFR (African American) 136 ML/MIN (>60); Globulin 3.2 g/dL (1.3-3.2); Total Protein,Serum 7.2 g/dl (6.3-8.2)
[2022-09-19 13:43] LABS: Calcium 9.7 mg/dl (8.4-10.2); Chol/HDL Ratio 3.6 (1-3.5); Cholesterol 105 mg/dl (140-200); Glucose 227 mg/dl (74-100); HDL Cholesterol 29 mg/dl (40-60); Triglycerides 353 mg/dl (30-150); VLDL Cholesterol 71 mg/dL (0-40)
[2022-09-19 13:45] LABS: Anion Gap 16.6 mEq/L (5-15); Hemoglobin A1C 9.9 % (4.0-6.0)
[2022-09-19 13:55] LABS: Direct LDL Cholesterol 40.23 mg/dL (100-129)
[2022-09-19 14:15] LABS: Prostate Specific Ag Screen 0.9 ng/ml (0.0-4.0)
== END ==
PROVIDERS: PCP Internal Medicine; Visit Provider Internal Medicine
DX: E11.59 Type 2 diabetes mellitus with other circulatory complications (principal); I25.10 Atherosclerotic heart disease of native coronary artery without angina pectoris; I10 Essential (primary) hypertension; E78.5 Hyperlipidemia, unspecified; F41.9 Anxiety disorder, unspecified; F32.9 Major depressive disorder, single episode, unspecified; Z12.5 Encounter for screening for malignant neoplasm of prostate; Z79.4 Long term (current) use of insulin
CPT/HCPCS: 80053; 80061; 82043; 82570; 83036; 85025; G0103

== ENCOUNTER 2023-03-25 16:44 | Outpatient (CLI) | payer MEDICARE, SELFPAY ==
[2023-03-25 18:13] LABS: Alanine Aminotransferase 48 U/L (12-78); Albumin Level 4.7 g/dl (3.5-5.0); Albumin/Globulin Ratio 1.7 (1.1-1.8); Alkaline Phosphatase 120 U/L (38-126); Anion Gap 15.6 mEq/L (5-15); Aspartate Amino Transferase 37 U/L (17-59); Bilirubin,Total 0.9 mg/dl (0.2-1.3); Blood Urea Nitrogen 17 mg/dl (9-20); Calcium 9.5 mg/dl (8.4-10.2); Carbon Dioxide 27 mmol/L (22.0-30.0); Chloride 102 mmol/L (98-107); Chol/HDL Ratio 3.2 (1-3.5); Cholesterol 107 mg/dl (140-200); Estimated Glomerular Filt Rate 96 ml/min (>60); GFR (African American) 117 ML/MIN (>60); Globulin 2.8 g/dL (1.3-3.2); Glucose 183 mg/dl (74-100); HDL Cholesterol 33 mg/dl (40-60); Potassium 4.6 mmoL/L (3.5-5.1); Sodium 140 mmol/L (136-145); Total Protein,Serum 7.5 g/dl (6.3-8.2); Triglycerides 238 mg/dl (30-150); VLDL Cholesterol 48 mg/dL (0-40)
[2023-03-25 18:24] LABS: Direct LDL Cholesterol 47.23 mg/dL (100-129)
[2023-03-25 18:27] LABS: Hemoglobin A1C 9.8 % (4.0-6.0)
== END 2023-03-25 23:59 ==
LOC: LAB.DROPOF 16:45
PROVIDERS: PCP Internal Medicine; Visit Provider Internal Medicine
DX: E11.59 Type 2 diabetes mellitus with other circulatory complications (principal); E11.42 Type 2 diabetes mellitus with diabetic polyneuropathy; I10 Essential (primary) hypertension; I25.10 Atherosclerotic heart disease of native coronary artery without angina pectoris; E78.5 Hyperlipidemia, unspecified; F32.9 Major depressive disorder, single episode, unspecified; F41.9 Anxiety disorder, unspecified; Z79.4 Long term (current) use of insulin
CPT/HCPCS: 80053; 80061; 83036

== ENCOUNTER 2023-09-23 09:20 | Outpatient (CLI) | payer MEDICARE, SELFPAY ==
[2023-09-23 17:35] LABS: Basophils # 0.1 K/mm3 (0-0.2); Basophils % 0.8 % (0.1-2.0); Eosinophils # 0.1 K/mm3 (0.0-0.4); Eosinophils % 1.4 % (0.1-12.0); Hemoglobin 16.9 g/dL (14.1-18.0); Lymphocytes # 3.3 K/mm3 (0.7-4.5); Lymphocytes % 34.7 % (10-50); Mean Corpuscular HGB Conc 32.5 g/dL (31.8-35.4); Mean Corpuscular Hemoglobin 30.4 pg (27.0-31.2); Mean Corpuscular Volume 93.4 fl (80-94); Mean Platelet Volume 8.6 fl (7.4-10.4); Monocytes # 0.7 K/mm3 (0.1-1.0); Monocytes % 6.9 % (1.7-9.3); Neutrophils # 5.4 K/mm3 (1.8-7.8); Neutrophils % 56.1 % (37.0-80.0); Platelet Count 202 K/mm3 (142-424); Red Blood Count 5.57 M/mm3 (4.60-6.20); Red Cell Distribution Width 15.2 % (11.5-17.5); White Blood Count 9.6 K/mm3 (4.8-10.8)
[2023-09-23 19:04] LABS: Alanine Aminotransferase 42 U/L (12-78); Albumin Level 4.3 g/dl (3.5-5.0); Albumin/Globulin Ratio 1.4 (1.1-1.8); Alkaline Phosphatase 82 U/L (38-126); Anion Gap 14.1 mEq/L (5-15); Aspartate Amino Transferase 36 U/L (17-59); Bilirubin,Total 0.9 mg/dl (0.2-1.3); Blood Urea Nitrogen 16 mg/dl (9-20); Calcium 9.3 mg/dl (8.4-10.2); Carbon Dioxide 25 mmol/L (22.0-30.0); Chloride 104 mmol/L (98-107); Estimated Glomerular Filt Rate 112 ml/min (>60); GFR (African American) 136 ML/MIN (>60); Globulin 3.1 g/dL (1.3-3.2); Glucose 90 mg/dl (74-100); Potassium 4.1 mmoL/L (3.5-5.1); Sodium 139 mmol/L (136-145); Total Protein,Serum 7.4 g/dl (6.3-8.2)
[2023-09-23 19:30] LABS: Prostate Specific Ag Screen 0.9 ng/ml (0.0-4.0)
[2023-09-23 21:33] LABS: Creatinine,Urine Random 76 mg/dL (Not Estab.)
[2023-09-23 21:39] LABS: Microalbumin/Creatinine Ratio 42.7
== END 2023-09-23 23:59 | disposition home or self-care (01) ==
LOC: LAB.DROPOF 09-24 11:15
PROVIDERS: PCP Internal Medicine; Visit Provider Internal Medicine
DX: I10 Essential (primary) hypertension (principal); E11.59 Type 2 diabetes mellitus with other circulatory complications; E11.42 Type 2 diabetes mellitus with diabetic polyneuropathy; Z12.5 Encounter for screening for malignant neoplasm of prostate; Z79.4 Long term (current) use of insulin; Z79.84 Long term (current) use of oral hypoglycemic drugs
CPT/HCPCS: 80053; 82043; 82570; 83036; 85025; G0103

== ENCOUNTER 2023-11-30 16:53 | Outpatient (CLI) | payer MEDICARE, SELFPAY ==
[2023-11-30 16:22] LABS: Basophils # 0.1 K/mm3 (0-0.2); Basophils % 1.1 % (0.1-2.0); Eosinophils # 0.1 K/mm3 (0.0-0.4); Eosinophils % 0.5 % (0.1-12.0); Hematocrit 55.7 % (42.0-52.0); Lymphocytes # 1.3 K/mm3 (0.7-4.5); Lymphocytes % 10.3 % (10-50); Mean Corpuscular HGB Conc 33.3 g/dL (31.8-35.4); Mean Corpuscular Hemoglobin 29.1 pg (27.0-31.2); Mean Corpuscular Volume 87.4 fl (80-94); Mean Platelet Volume 7.5 fl (7.4-10.4); Monocytes % 7.7 % (1.7-9.3); Neutrophils # 10.3 K/mm3 (1.8-7.8); Neutrophils % 80.4 % (37.0-80.0); Platelet Count 179 K/mm3 (142-424); Red Blood Count 6.38 M/mm3 (4.60-6.20); Red Cell Distribution Width 15.1 % (11.5-17.5); White Blood Count 12.8 K/mm3 (4.8-10.8)
[2023-11-30 17:11] LABS: Hemoglobin 18.5 g/dL (14.1-18.0)
[2023-11-30 18:05] LABS: Alanine Aminotransferase 59 U/L (12-78); Albumin Level 4.4 g/dl (3.5-5.0); Albumin/Globulin Ratio 1.5 (1.1-1.8); Alkaline Phosphatase 59 U/L (38-126); Anion Gap 14.4 mEq/L (5-15); Aspartate Amino Transferase 84 U/L (17-59); Bilirubin,Total 1.4 mg/dl (0.2-1.3); Blood Urea Nitrogen 23 mg/dl (9-20); Calcium 9.3 mg/dl (8.4-10.2); Carbon Dioxide 25 mmol/L (22.0-30.0); Chloride 98 mmol/L (98-107); Estimated Glomerular Filt Rate 84 ml/min (>60); GFR (African American) 102 ML/MIN (>60); Glucose 77 mg/dl (74-100); Potassium 4.4 mmoL/L (3.5-5.1); Sodium 133 mmol/L (136-145); Total Protein,Serum 7.4 g/dl (6.3-8.2)
[2023-11-30 18:16] LABS: Acetone, Serum (Rapid) None Detected (None Detect)
== END 2023-11-30 23:59 | disposition home or self-care (01) ==
LOC: LAB.DROPOF 16:54
PROVIDERS: PCP Internal Medicine; Visit Provider Internal Medicine
DX: I10 Essential (primary) hypertension (principal); R53.83 Other fatigue; E11.59 Type 2 diabetes mellitus with other circulatory complications; E11.42 Type 2 diabetes mellitus with diabetic polyneuropathy; R82.90 Unspecified abnormal findings in urine
CPT/HCPCS: 80053; 82009; 85025

== ENCOUNTER 2023-12-01 13:12 | Outpatient (CLI) | payer MEDICARE, SELFPAY ==
--- NOTE | 2023-12-01 13:16 | CT_ITS ---
PROCEDURE INFORMATION: Exam: CT Head Without Contrast Exam date and time: 12/01/2023 1:19 PM Age: 68 years old Clinical indication: Other: Lethargy; Additional info: Sleepiness and lethargy TECHNIQUE: Imaging protocol: Computed tomography of the head without contrast. Radiation optimization: All CT scans at this facility use at least one of these dose optimization techniques: automated exposure control; mA and/or kV adjustment per patient size (includes targeted exams where dose is matched to clinical indication); or iterative reconstruction. COMPARISON: HEADWO CT head/brain wo con 01/21/2018 12:22 PM FINDINGS: Brain: No acute infarct, hemorrhage, mass, or mass effect. Mild chronic white matter microvascular ischemic change. Cerebral ventricles: Moderate brain parenchymal atrophy with widening of the ventricles and sulci. No appreciable extra-axial fluid. Paranasal sinuses: Mucosal thickening in the paranasal sinuses. Mastoid air cells: Clear. Orbital cavities: Orbits are unremarkable. Sella is unremarkable. Teeth: Multiple carious teeth in the maxilla, with a few periapical lucencies, for example at 8 and 9. Bones: Unremarkable. Soft tissues: Unremarkable. IMPRESSION: 1. No acute intracranial abnormality. 2. Multiple carious teeth in the maxilla, with a few periapical lucencies, for example at 8 and 9. Nonemergent outpatient dental consult recommended for complete evaluation.
== END 2023-12-01 23:59 | disposition home or self-care (01) ==
LOC: RAD 13:13
PROVIDERS: PCP Internal Medicine; Visit Provider Internal Medicine
DX: R40.0 Somnolence (principal); R53.83 Other fatigue
CPT/HCPCS: 70450

== ENCOUNTER 2023-12-06 14:13 | Observation (INO) | payer MEDICARE, SELFPAY ==
[2023-12-06] VITALS (10 sets, daily range): BP systolic 102–147; BP diastolic 59–96; PULSE 46–120; RESP 15–33; TEMP 36.9; O2SAT 95–97; BMI 28.8; BMI 27.1
--- NOTE | 2023-12-06 15:26 | HMH.EDGENADL ---
Discharge Plan Disposition Patient Disposition: Admitted Clinical Impressions Clinical Impression: GIB (gastrointestinal bleeding) Qualifiers: GI bleed type/associated pathology: melena Qualified Code(s): K92.1 - Melena Discharge ED Provider: Todd Morales General Adult HPI <STEF Dudley - Last Filed: 12/06/23 23:26> General Chief complaint: GI Bleed Stated complaint: poss. absessed teeth in top front, black bm Time Seen by Provider: 12/06/23 14:25 Mode of Arrival: Ambulatory Source of Information: Patient and Spouse Limitations: No Limitations Description of Symptoms (Recalled from ER Triage Doc. by RN): pt presents to ED with c/o painful, broken teeth, dark tarry stools. teeth have been broken for a couple of months, the dark stools began 3 days ago. reports that he hasnt nayeli eating or drinking enough. pt does take eliquis. History of Present Illness HPI narrative: Patient presents with 3 days of dark stool. He does take aspirin and Eliquis daily. Denies any abdominal pain. He denies any nausea and vomiting. Afebrile. He reports that he also has some dental pain with significant dental caries. He reports he had a CT scan recently which revealed some periapical lucencies complaint: Dark stool Onset (ago): day(s) (3) Location: mouth Severity: moderate Quality: other (dental pain) Consistency: constant Relieving factors: none Exacerbating factors: none Associated symptoms: negative nausea/vomiting Treatments prior to arrival: aspirin Related Data Home Medications ?Medication ?Instructions ?Recorded ?Confirmed aspirin 81 mg tablet,delayed 81 mg PO DAILY heart health 09/17/20 12/06/23 release insulin glargine 100 unit/mL (3 70 unit SQ BID Diabetes 09/23/23 12/06/23 mL) subcutaneous pen (Basaglar KwikPen U-100 Insulin) sitagliptin phos 100 mg-metformin 1 tab PO DAILY 09/23/23 12/06/23 ER 1,000 mg tablet,extend rel 24h mp (Janumet XR) metoprolol succinate 50 mg 150 mg PO BID 12/06/23 12/06/23 tablet,extended release 24 hr Previous Rx's ?Medication ?Instructions ?Recorded apixaban 5 mg tablet (Eliquis) 5 mg PO BID Blood thinner #180 tabs 12/04/22 atorvastatin 40 mg tablet 40 mg PO HS 30 days #90 tabs 12/04/22 empagliflozin 10 mg tablet 10 mg PO DAILY Diabetes #90 tabs 12/04/22 (Jardiance) gabapentin 300 mg capsule 300 mg PO DAILY #90 caps 07/17/23 Allergies Allergy/AdvReac Type Severity Reaction Status Date / Time chlorpromazine Allergy Unknown DRAWING OF Verified 11/30/23 15:30 [From THORAZINE] MOUTH PFSH <STEF Dudley - Last Filed: 12/06/23 23:26> [facility] Disclaimer: The information contained in this section may have been updated after the patient was seen, as this information can be updated by other users. Medical History Chronic a-fib Palpitations Ischemic cardiomyopathy Sinus tachycardia Abnormal electrocardiography Right bundle branch block HLD (hyperlipidemia) HTN (hypertension) CAD (coronary artery disease) Social History Smoking Status: Never smoker alcohol intake: never substance use type: denies use current occupational status: retired Travel in the last 8 weeks: Inside the [place] Other Medical History Have you received the Flu Vaccine for this season: No Have you received the Pneumonia Vaccine: Yes <STEF Dudley Last Filed: 12/06/23 23:26> ROS Obtained: Yes All systems reviewed & no additional complaints except as documented Physical Exam <STEF Dudley Last Filed: 12/06/23 23:26> General General appearance: alert and in no apparent distress Head Head exam: atraumatic and normocephalic Eye Eye exam: Present normal appearance and EOMI ENT ENT exam: Present other (Significant dental caries, no obvious abscess) Chest Chest inspection: Present symmetric chest wall rise Respiratory Respiratory exam: Present normal lung sounds bilaterally; Absent wheezes or stridor Cardiovascular Cardiovascular exam: Present regular rate and normal rhythm; Absent systolic murmur Abdominal Exam Abdominal exam: Present soft and normal bowel sounds; Absent distention, tenderness, guarding or rebound Extremities Exam Extremities exam: Present full ROM Neurological Exam Neurological exam: Present alert and oriented X3 Psychiatric Psychiatric exam: Present normal affect and normal mood Skin Skin exam: Present warm, dry and intact Medical Decision Making <STEF Dudley Last Filed: 12/06/23 23:26> Medical Records Screening: Per USPSTF and CDC recommendations, given the prevalence of disease in our region, it is our hospital?s policy to screen for HIV and viral Hepatitis for all patients aged 18 and over and those with ongoing risk factors. Wayne Inquiry Pt receiving controlled substance: No Wayne was queried for this patient: No Vital Signs: 12/06/23 14:16 12/06/23 17:44 12/06/23 18:00 Temperature 98.5 F Temperature Source Oral Pulse Rate 46 L 67 Pulse Rate [Left Radial] 80 Respiratory Rate 15 Blood Pressure 105/87 L 119/75 Blood Pressure [Right Arm] 124/96 H Blood Pressure Mean [Right Arm] 105 Blood Pressure Source [Right Arm] 02 Sat by Pulse Oximetry 95 97 96 Oxygen Delivery Method Room Air Room Air Room Air 12/06/23 18:30 12/06/23 19:01 12/06/23 19:31 Temperature Temperature Source Pulse Rate 83 100 H 100 H Pulse Rate [Left Radial] Respiratory Rate 27 H 29 H 33 H Blood Pressure 133/69 102/72 L 109/59 L Blood Pressure [Right Arm] Blood Pressure Mean [Right Arm] Blood Pressure Source [Right Arm] 02 Sat by Pulse Oximetry 97 97 95 Oxygen Delivery Method Room Air 12/06/23 20:00 12/06/23 20:46 12/06/23 20:48 Temperature 98.4 F 98.4 F Temperature Source Oral Pulse Rate 100 H Pulse Rate [Left Radial] 113 H Respiratory Rate 26 H 24 16 Blood Pressure 104/61 L 104/61 L Blood Pressure [Right Arm] 147/68 H Blood Pressure Mean [Right Arm] 94 Blood Pressure Source [Right Arm] Automatic Cuff 02 Sat by Pulse Oximetry 96 Oxygen Delivery Method Room Air Room Air Lab Data Lab Results 12/06/23 15:20: WBC 11.0 H, RBC 6.20, Hgb 18.0, Hct 53.4 H, MCV 86.2, MCH 29.0, MCHC 33.7, RDW 15.6, Plt Count 259, MPV 8.1, Neut % (Auto) 82.4 H, Lymph % (Auto) 11.9, [place] % (Auto) 5.0, Eos % (Auto) 0.1, Baso % (Auto) 0.5, Neut # (Auto) 9.1 H, Lymph # (Auto) 1.3, [place] # (Auto) 0.6, Eos # (Auto) 0.0, Baso # (Auto) 0.1, PT 14.2 H, INR 1.30 H, APTT 26.6, Sodium 129 L, Potassium 5.5 H, Chloride 98, Carbon Dioxide 17 L, Anion Gap 19.5 H, BUN 33 H, Creatinine 1.10, Estimated Creat Clear 69, Estimated GFR 67, Est GFR ( Amer) 81, Glucose 193 H, Calcium 7.9 L, Total Bilirubin 1.4 H, AST 162 H, ALT 147 H, Alkaline Phosphatase 100, Total Protein 7.0, Albumin 3.8, Globulin 3.2, Albumin/Globulin Ratio 1.2, HIV 1&2 Antibody Rapid Nonreactive 12/06/23 17:43: Stool Occult Blood Positive A 12/06/23 18:36: VBG pH 7.33, VBG pCO2 33.9 L, VBG pO2 36.8, VBG HCO3 17.3 L, VBG Total CO2 18.3 L, VBG O2 Saturation 66.5, VBG Base Excess -8.7 L, VBG Lactic Acid 2.9 H 12/06/23 15:20 12/06/23 21:20 Orders (Tests/Meds): ED MEDICATIONS Generic Name Dose Route Start Last Admin Trade Name Freq PRN Reason Stop Dose Admin Atorvastatin Calcium 40 mg 12/06/23 21:00 12/06/23 21:34 Atorvastatin 40mg Tablet PO 01/05/24 20:59 40 mg HS CASSIUS Administration Gabapentin 300 mg 12/06/23 21:00 12/06/23 21:34 Gabapentin 300mg Capsule PO 01/05/24 20:59 300 mg DAILY CASSIUS Administration Clindamycin Phosphate 600 mg in 50 mls @ 100 mls/hr 12/06/23 21:00 12/06/23 21:36 Clindamycin 600mg/50ml D5w Premix IV 12/16/23 20:59 100 mls/hr Q8H CASSIUS Administration Sodium Chloride 500 mls @ 999 mls/hr 12/06/23 20:46 12/06/23 21:07 Sod Chlor 0.9% 1000ml Bag IV 12/06/23 21:16 999 mls/hr .Q31M ONE Administration Sodium Chloride 1,000 mls @ 100 mls/hr 12/06/23 21:15 12/06/23 22:37 Sod Chlor 0.9% 1000ml Bag IV 01/05/24 21:14 100 mls/hr .Q10H CASSIUS Administration Insulin Glargine 25 unit 12/06/23 21:00 12/06/23 21:35 Insulin Glargine 100 Units/Ml 3ml Flexpen SUBCUT 01/05/24 20:59 25 units HS CASSIUS Administration Insulin Human Lispro 0 unit 12/06/23 21:00 12/06/23 21:36 Humalog 100 Units/Ml 10ml Vial (Ssi) SUBCUT 01/05/24 20:59 Not Given ACHS CASSIUS Protocol Metoprolol Succinate 50 mg 12/06/23 21:00 12/06/23 21:34 Metoprolol Succinate Xl 50mg Tablet PO 01/05/24 20:59 50 mg BID CASSIUS Administration Metoprolol Succinate 100 mg 12/06/23 22:50 12/06/23 22:58 Metoprolol Succinate Xl 100mg Tablet PO 01/05/24 22:49 100 mg BID CASSIUS Administration Pantoprazole Sodium 40 mg 12/06/23 21:00 12/06/23 21:34 Pantoprazole 40mg Vial IV 01/05/24 20:59 40 mg BID CASSIUS Administration Sodium Chloride 10 ml 12/06/23 14:43 Sodium Chloride 0.9% 10ml Flush Syringe IV 01/05/24 14:42 NEEDED PRN Maintain IV Site Sodium Chloride 10 ml 12/06/23 21:15 Sodium Chloride 0.9% 10ml Flush Syringe IV 01/05/24 21:14 NEEDED PRN Maintain IV Site Discontinued Medications Generic Name Dose Route Start Last Admin Trade Name Freq PRN Reason Stop Dose Admin Sodium Chloride 1,000 mls @ 999 mls/hr 12/06/23 18:17 12/06/23 18:27 Sod Chlor 0.9% 1000ml Bag IV 12/06/23 19:17 999 mls/hr .Q1H1M ONE Administration Sodium Chloride 500 mls @ 999 mls/hr 12/06/23 20:01 12/06/23 21:06 Sod Chlor 0.9% 1000ml Bag IV 12/06/23 20:31 999 mls/hr .Q31M ONE Administration Metoprolol Succinate 0 mg 10/27/24 21:00 Metoprolol Succinate Xl 100mg Tablet PO 01/05/24 20:59 .COMPLEX CASSIUS Metoprolol Tartrate 5 mg 12/06/23 18:34 12/06/23 18:38 Metoprolol Tartrate 5mg/5ml Vial IV 12/06/23 18:35 5 mg ONCE ONE Administration Pantoprazole Sodium 40 mg 12/06/23 15:09 12/06/23 16:34 Pantoprazole 40mg Vial IV 12/06/23 15:10 40 mg ONCE ONE Administration Sodium Zirconium Cyclosilicate 10 gm 12/06/23 17:35 12/06/23 18:14 Lokelma 5gm Packet PO 12/06/23 17:36 10 gm ONCE ONE Administration ORDERS Category Date Time Status Consult to Gastroenterology [CONS] Routine Cons 12/06/23 20:06 Active Acetone, Serum (Rapid) Stat Lab 12/06/23 21:20 Completed Activated Partial Thrombo Time Stat Lab 12/06/23 15:20 Completed BMP [Basic Metabolic Panel] Stat Lab 12/06/23 21:20 Completed Complete Blood Count Auto Diff AMLAB Lab 12/07/23 06:00 Ordered Complete Blood Count Auto Diff Stat Lab 12/06/23 15:20 Completed Comprehensive Metabolic Panel AMLAB Lab 12/07/23 06:00 Ordered Comprehensive Metabolic Panel Stat Lab 12/06/23 15:20 Completed HIV (1&2) Antibody Rapid Stat Lab 12/06/23 15:20 Completed Hemoglobin A1C Stat Lab 12/06/23 Completed Hep C Ab with Reflex to RNA Stat Lab 12/06/23 15:20 Received Magnesium AMLAB Lab 12/07/23 06:00 Ordered Occult Blood,Stool Stat Lab 12/06/23 17:43 Completed Prothrombin Time INR Stat Lab 12/06/23 15:20 Completed Urinalysis and Microscopic Stat Lab 12/06/23 22:40 Results VBG [Venous Blood Gas] Stat RT 12/06/23 18:36 Completed Medical Decision Narrative: In summary patient is a 68-year-old man who presents the emergency department for evaluation of dark stool, dental. Patient is hemodynamically stable upon arrival, afebrile. Unremarkable exam with the exception of inflamed gums. Differential diagnosis includes upper GI bleed, anemia, gastritis, peptic ulcer disease. Initial workup will be conducted with CBC, CMP, coags, Hemoccult. Initial inventions include Protonix. Initial workup reviewed by in labs including Hemoccult. Upon repeat evaluation tachycardia and known A-fib, given metoprolol with improvement. Given this patient admitted for further workup of GI bleeding. <Todd Morales MD - Last Filed: 12/06/23 23:37> Vital Signs: 12/06/23 14:16 12/06/23 17:44 12/06/23 18:00 Temperature 98.5 F Temperature Source Oral Pulse Rate 46 L 67 Pulse Rate [Left Radial] 80 Respiratory Rate 15 Blood Pressure 105/87 L 119/75 Blood Pressure [Right Arm] 124/96 H Blood Pressure Mean [Right Arm] 105 Blood Pressure Source [Right Arm] 02 Sat by Pulse Oximetry 95 97 96 Oxygen Delivery Method Room Air Room Air Room Air 12/06/23 18:30 12/06/23 19:01 12/06/23 19:31 Temperature Temperature Source Pulse Rate 83 100 H 100 H Pulse Rate [Left Radial] Respiratory Rate 27 H 29 H 33 H Blood Pressure 133/69 102/72 L 109/59 L Blood Pressure [Right Arm] Blood Pressure Mean [Right Arm] Blood Pressure Source [Right Arm] 02 Sat by Pulse Oximetry 97 97 95 Oxygen Delivery Method Room Air 12/06/23 20:00 12/06/23 20:46 12/06/23 20:48 Temperature 98.4 F 98.4 F Temperature Source Oral Pulse Rate 100 H Pulse Rate [Left Radial] 113 H Respiratory Rate 26 H 24 16 Blood Pressure 104/61 L 104/61 L Blood Pressure [Right Arm] 147/68 H Blood Pressure Mean [Right Arm] 94 Blood Pressure Source [Right Arm] Automatic Cuff 02 Sat by Pulse Oximetry 96 Oxygen Delivery Method Room Air Room Air Lab Data Lab Results 12/06/23 15:20: WBC 11.0 H, RBC 6.20, Hgb 18.0, Hct 53.4 H, MCV 86.2, MCH 29.0, MCHC 33.7, RDW 15.6, Plt Count 259, MPV 8.1, Neut % (Auto) 82.4 H, Lymph % (Auto) 11.9, [place] % (Auto) 5.0, Eos % (Auto) 0.1, Baso % (Auto) 0.5, Neut # (Auto) 9.1 H, Lymph # (Auto) 1.3, [place] # (Auto) 0.6, Eos # (Auto) 0.0, Baso # (Auto) 0.1, PT 14.2 H, INR 1.30 H, APTT 26.6, Sodium 129 L, Potassium 5.5 H, Chloride 98, Carbon Dioxide 17 L, Anion Gap 19.5 H, BUN 33 H, Creatinine 1.10, Estimated Creat Clear 69, Estimated GFR 67, Est GFR ( Amer) 81, Glucose 193 H, Calcium 7.9 L, Total Bilirubin 1.4 H, AST 162 H, ALT 147 H, Alkaline Phosphatase 100, Total Protein 7.0, Albumin 3.8, Globulin 3.2, Albumin/Globulin Ratio 1.2, HIV 1&2 Antibody Rapid Nonreactive 12/06/23 17:43: Stool Occult Blood Positive A 12/06/23 18:36: VBG pH 7.33, VBG pCO2 33.9 L, VBG pO2 36.8, VBG HCO3 17.3 L, VBG Total CO2 18.3 L, VBG O2 Saturation 66.5, VBG Base Excess -8.7 L, VBG Lactic Acid 2.9 H Orders (Tests/Meds): ED MEDICATIONS Generic Name Dose Route Start Last Admin Trade Name Freq PRN Reason Stop Dose Admin Atorvastatin Calcium 40 mg 12/06/23 21:00 12/06/23 21:34 Atorvastatin 40mg Tablet PO 01/05/24 20:59 40 mg HS CASSIUS Administration Gabapentin 300 mg 12/06/23 21:00 12/06/23 21:34 Gabapentin 300mg Capsule PO 01/05/24 20:59 300 mg DAILY CASSIUS Administration Clindamycin Phosphate 600 mg in 50 mls @ 100 mls/hr 12/06/23 21:00 12/06/23 21:36 Clindamycin 600mg/50ml D5w Premix IV 12/16/23 20:59 100 mls/hr Q8H CASSIUS Administration Sodium Chloride 500 mls @ 999 mls/hr 12/06/23 20:46 12/06/23 21:07 Sod Chlor 0.9% 1000ml Bag IV 12/06/23 21:16 999 mls/hr .Q31M ONE Administration Sodium Chloride 1,000 mls @ 100 mls/hr 12/06/23 21:15 12/06/23 22:37 Sod Chlor 0.9% 1000ml Bag IV 01/05/24 21:14 100 mls/hr .Q10H CASSIUS Administration Insulin Glargine 25 unit 12/06/23 21:00 12/06/23 21:35 Insulin Glargine 100 Units/Ml 3ml Flexpen SUBCUT 01/05/24 20:59 25 units HS CASSIUS Administration Insulin Human Lispro 0 unit 12/06/23 21:00 12/06/23 21:36 Humalog 100 Units/Ml 10ml Vial (Ssi) SUBCUT 01/05/24 20:59 Not Given ACHS CASSIUS Protocol Metoprolol Succinate 50 mg 12/06/23 21:00 12/06/23 21:34 Metoprolol Succinate Xl 50mg Tablet PO 01/05/24 20:59 50 mg BID CASSIUS Administration Metoprolol Succinate 100 mg 12/06/23 22:50 12/06/23 22:58 Metoprolol Succinate Xl 100mg Tablet PO 01/05/24 22:49 100 mg BID CASSIUS Administration Pantoprazole Sodium 40 mg 12/06/23 21:00 12/06/23 21:34 Pantoprazole 40mg Vial IV 01/05/24 20:59 40 mg BID CASSIUS Administration Sodium Chloride 10 ml 12/06/23 14:43 Sodium Chloride 0.9% 10ml Flush Syringe IV 01/05/24 14:42 NEEDED PRN Maintain IV Site Sodium Chloride 10 ml 12/06/23 21:15 Sodium Chloride 0.9% 10ml Flush Syringe IV 01/05/24 21:14 NEEDED PRN Maintain IV Site Discontinued Medications Generic Name Dose Route Start Last Admin Trade Name Freq PRN Reason Stop Dose Admin Sodium Chloride 1,000 mls @ 999 mls/hr 12/06/23 18:17 12/06/23 18:27 Sod Chlor 0.9% 1000ml Bag IV 12/06/23 19:17 999 mls/hr .Q1H1M ONE Administration Sodium Chloride 500 mls @ 999 mls/hr 12/06/23 20:01 12/06/23 21:06 Sod Chlor 0.9% 1000ml Bag IV 12/06/23 20:31 999 mls/hr .Q31M ONE Administration Metoprolol Succinate 0 mg 12/06/23 21:00 Metoprolol Succinate Xl 100mg Tablet PO 01/05/24 20:59 .COMPLEX CASSIUS Metoprolol Tartrate 5 mg 12/06/23 18:34 12/06/23 18:38 Metoprolol Tartrate 5mg/5ml Vial IV 12/06/23 18:35 5 mg ONCE ONE Administration Pantoprazole Sodium 40 mg 12/06/23 15:09 12/06/23 16:34 Pantoprazole 40mg Vial IV 12/06/23 15:10 40 mg ONCE ONE Administration Sodium Zirconium Cyclosilicate 10 gm 12/06/23 17:35 12/06/23 18:14 Lokelma 5gm Packet PO 12/06/23 17:36 10 gm ONCE ONE Administration ORDERS Category Date Time Status Consult to Gastroenterology [CONS] Routine Cons 12/06/23 20:06 Active Acetone, Serum (Rapid) Stat Lab 12/06/23 21:20 Completed Activated Partial Thrombo Time Stat Lab 12/06/23 15:20 Completed BMP [Basic Metabolic Panel] Stat Lab 12/06/23 21:20 Completed Complete Blood Count Auto Diff AMLAB Lab 12/07/23 06:00 Ordered Complete Blood Count Auto Diff Stat Lab 12/06/23 15:20 Completed Comprehensive Metabolic Panel AMLAB Lab 12/07/23 06:00 Ordered Comprehensive Metabolic Panel Stat Lab 12/06/23 15:20 Completed HIV (1&2) Antibody Rapid Stat Lab 12/06/23 15:20 Completed Hemoglobin A1C Stat Lab 12/06/23 Completed Hep C Ab with Reflex to RNA Stat Lab 12/06/23 15:20 Received Magnesium AMLAB Lab 12/07/23 06:00 Ordered Occult Blood,Stool Stat Lab 12/06/23 17:43 Completed Prothrombin Time INR Stat Lab 12/06/23 15:20 Completed Urinalysis and Microscopic Stat Lab 12/06/23 22:40 Results VBG [Venous Blood Gas] Stat RT 12/06/23 18:36 Completed Medical Decision Narrative: In summary patient is a 68-year-old man who presents the emergency department for evaluation of dark stool, dental. Patient is hemodynamically stable upon arrival, afebrile. Unremarkable exam with the exception of inflamed gums. Differential diagnosis includes upper GI bleed, anemia, gastritis, peptic ulcer disease. Initial workup will be conducted with CBC, CMP, coags, Hemoccult. Initial inventions include Protonix. Initial workup reviewed by in labs including Hemoccult. Upon repeat evaluation tachycardia and known A-fib, given metoprolol with improvement. Given this patient admitted for further workup of GI bleeding. I was consulted by the NASRIN, and we discussed the complexity of the problems being addressed. I approved the treatment and management plan for this patient's care in the Emergency Department, thus performing a substantive portion of the medical decision making. Todd Morales MD Critical Care <STEF Dudley - Last Filed: 12/06/23 23:26> Critical Care Time Critical Care Time: No
[2023-12-06 15:47] LABS: Alanine Aminotransferase 147 U/L (12-78); Albumin Level 3.8 g/dl (3.5-5.0); Albumin/Globulin Ratio 1.2 (1.1-1.8); Alkaline Phosphatase 100 U/L (38-126); Anion Gap 19.5 mEq/L (5-15); Aspartate Amino Transferase 162 U/L (17-59); Bilirubin,Total 1.4 mg/dl (0.2-1.3); Blood Urea Nitrogen 33 mg/dl (9-20); Calcium 7.9 mg/dl (8.4-10.2); Carbon Dioxide 17 mmol/L (22.0-30.0); Chloride 98 mmol/L (98-107); Creatinine Clearance Estimated 69 mL/min (50-200); Estimated Glomerular Filt Rate 67 ml/min (>60); GFR (African American) 81 ML/MIN (>60); Globulin 3.2 g/dL (1.3-3.2); Glucose 193 mg/dl (74-100); Potassium 5.5 mmoL/L (3.5-5.1); Sodium 129 mmol/L (136-145)
[2023-12-06 16:06] LABS: Basophils # 0.1 K/mm3 (0-0.2); Basophils % 0.5 % (0.1-2.0); Eosinophils % 0.1 % (0.1-12.0); Hematocrit 53.4 % (42.0-52.0); Lymphocytes # 1.3 K/mm3 (0.7-4.5); Lymphocytes % 11.9 % (10-50); Mean Corpuscular HGB Conc 33.7 g/dL (31.8-35.4); Mean Corpuscular Volume 86.2 fl (80-94); Mean Platelet Volume 8.1 fl (7.4-10.4); Monocytes # 0.6 K/mm3 (0.1-1.0); Neutrophils # 9.1 K/mm3 (1.8-7.8); Neutrophils % 82.4 % (37.0-80.0); Platelet Count 259 K/mm3 (142-424); Red Cell Distribution Width 15.6 % (11.5-17.5)
[2023-12-06 16:15] LABS: Activated Partial Thrombo Time 26.6 seconds (22.8-30.6); Prothrombin Time 14.2 seconds (10.1-12.5)
[2023-12-06] MEDS: PANTOPRAZOLE 40MG VIAL 40 MG IV ×2 (16:34→21:34)
[2023-12-06 16:46] LABS: HIV (1&2) Antibody Rapid NONREACTIVE (NONREACTIVE)
[2023-12-06 17:51] LABS: Occult Blood,Stool Positive (Negative)
[2023-12-06] MEDS: LOKELMA 5GM PACKET 10 GM PO (18:14)
--- NOTE | 2023-12-06 18:23 | ECG_ITS ---
APPROVED REPORT Exam: Resting ECG HR:148 bpm ECG Measurements Heart Rate 148 AXES QRSd 141 QRS 137 QT 298 T -15 QTc 383 Conclusion Atrial fibrillation with rapid ventricular response. Slight inferior depressions No evidence of elevations diagnostic of STEMI criteria Right bundle branch block morphology Electronically signed by : FEDERICO LARA, 12/08/2023 13:31:44
[2023-12-06] MEDS: 0.9 % SODIUM CHLORIDE 1000ML 1,000 ML 999 ML IV (18:27)
[2023-12-06 18:37] LABS: VBG Base Excess -8.7 mmol/L (-2.4-2.3); VBG HCO3 17.3 mmol/L (23-30); VBG Oxygen Saturation 66.5 % (50-70); VBG PCO2 33.9 mmol/L (35-51); VBG PH 7.33 mmol/L (7.31-7.41); VBG PO2 36.8 mmol/L (28-40); VBG Total CO2 18.3 mmol/L (23-27)
[2023-12-06 18:38] LABS: Lactate Venous 2.9 mmol/L (0.4-2.0)
[2023-12-06] MEDS: METOPROLOL TARTRATE 5MG/5ML VIAL 5 MG IV (18:38)
--- NOTE | 2023-12-06 19:25 | PC.NURSE ---
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 Will need ICU bed, however admission to floor will be delayed d/t it necessary to move pt's around to obtain icu level bed
--- NOTE | 2023-12-06 20:53 | PC.NURSE ---
Patient arrived to floor via wheelchair from ED at 20:47.
[2023-12-06] MEDS: 0.9 % SODIUM CHLORIDE 1000ML 500 ML 999 ML IV ×2 (21:06→21:07)
[2023-12-06 21:08] LABS: Hemoglobin A1C 9.2 % (4.0-6.0)
[2023-12-06] MEDS: GABAPENTIN 300MG CAPSULE 300 MG PO (21:34)
[2023-12-06] MEDS: ATORVASTATIN 40MG TABLET 40 MG PO (21:34)
[2023-12-06] MEDS: METOPROLOL SUCCINATE XL 50MG TABLET 50 MG PO (21:34)
[2023-12-06] MEDS: INSULIN GLARGINE 100 UNITS/ML 3ML FLEXPEN 25 UNIT SUBCUT (21:35)
[2023-12-06 21:36] LABS: Acetone, Serum (Rapid) Small (None Detect)
[2023-12-06] MEDS: CLINDAMYCIN PHOSPHATE/D5W 600 MG/50 ML PIGGYBACK 100 MG IV (21:36)
[2023-12-06 21:39] LABS: Anion Gap 14.8 mEq/L (5-15); Blood Urea Nitrogen 30 mg/dl (9-20); Carbon Dioxide 16 mmol/L (22.0-30.0); Chloride 104 mmol/L (98-107); Creatinine Clearance Estimated 72 mL/min (50-200); Estimated Glomerular Filt Rate 84 ml/min (>60); GFR (African American) 102 ML/MIN (>60); Glucose 147 mg/dl (74-100); Lactic Acid 1.7 mmol/L (0.7-2.1); Potassium 4.8 mmoL/L (3.5-5.1); Sodium 130 mmol/L (136-145)
[2023-12-06 21:45] LABS: POC Glucose,Bedside 155 (70-110)
--- NOTE | 2023-12-06 22:09 | P.HP_ITS ---
History of Present Illness *Admission Date: 12/06/23 *Reason for visit:: dark stool *History of present illness: This is a 68-year-old male with past medical history of chronic diastolic heart failure, paroxysmal A-fib on Eliquis, T2DM, ischemic cardiomyopathy, hypertension, hyperlipidemia who presents to the emergency department with complaints of dark stool. He reports dark black stool for approximately 3 days. He also complains of dental pain with broken teeth. States that he saw his primary care provider recently and underwent CT imaging of his head and face and was noted to have dental abscesses. States that he is in the process of getting these taken care of but any treatment for these yet. He states he feels generally poor all over. Denies any overt abdominal pain. Denies any hematic emesis. States that he has been on his Eliquis and aspirin as prescribed for his chronic Emergency department workup notable for hemoglobin of 18 and hematocrit of 53. White blood count of 11. INR 1.3 sodium of 129, potassium 5.5, anion gap 19, and CO2 of 17. Glucose of 194. pH 7.3, lactic acid 2.9. He is Hemoccult stool positive. Given the above-mentioned findings he will be admitted to the hospital service. [facility] Disclaimer: The information contained in this section may have been updated after the patient was seen, as this information can be updated by other users. Medical History Chronic a-fib Palpitations Ischemic cardiomyopathy Sinus tachycardia Abnormal electrocardiography Right bundle branch block HLD (hyperlipidemia) HTN (hypertension) CAD (coronary artery disease) Social History Smoking Status: Never smoker alcohol intake: never substance use type: denies use current occupational status: retired Travel in the last 8 weeks: Inside the [place] Other Medical History Have you received the Flu Vaccine for this season: No Have you received the Pneumonia Vaccine: No Review of Systems Review of Systems Review of systems:: other Review of systems (narrative): Negative except for HPI Meds Home Medications and Allergies Home Medications ?Medication ?Instructions ?Recorded ?Confirmed ?Type aspirin 81 mg tablet,delayed 81 mg PO DAILY 09/17/20 12/06/23 History release apixaban 5 mg tablet (Eliquis) 5 mg PO BID Blood thinner #180 tabs 12/04/22 12/07/23 Rx atorvastatin 40 mg tablet 40 mg PO HS 30 days #90 tabs 12/04/22 12/06/23 Rx empagliflozin 10 mg tablet 10 mg PO DAILY Diabetes #90 tabs 12/04/22 12/07/23 Rx (Jardiance) gabapentin 300 mg capsule 300 mg PO DAILY #90 caps 07/17/23 12/06/23 Rx sitagliptin phos 100 mg-metformin 1 tab PO DAILY 09/23/23 12/07/23 History ER 1,000 mg tablet,extend rel 24h mp (Janumet XR) metoprolol succinate 50 mg 50 mg PO BID 12/06/23 12/07/23 History tablet,extended release 24 hr metoprolol succinate 100 mg 100 mg PO BID 12/07/23 12/07/23 History tablet,extended release 24 hr New Prescriptions to Start Prescriptions: Allergies Allergy/AdvReac Type Severity Reaction Status Date / Time chlorpromazine Allergy Unknown DRAWING OF Verified 11/30/23 15:30 [From THORAZINE] MOUTH Exam Data for Last 24 hours Vital signs and Labs for Last 24 Hours: Temp Pulse Resp BP Pulse Ox O2 Del Method 98.4 F 113 H 16 147/68 H 96 Room Air 12/06/23 20:48 12/06/23 20:48 12/06/23 20:48 12/06/23 20:48 12/06/23 20:48 12/06/23 22:04 Laboratory Results - last 24 hr 12/06/23 15:20: WBC 11.0 H, RBC 6.20, Hgb 18.0, Hct 53.4 H, MCV 86.2, MCH 29.0, MCHC 33.7, RDW 15.6, Plt Count 259, MPV 8.1, Neut % (Auto) 82.4 H, Lymph % (Auto) 11.9, [place] % (Auto) 5.0, Eos % (Auto) 0.1, Baso % (Auto) 0.5, Neut # (Auto) 9.1 H, Lymph # (Auto) 1.3, [place] # (Auto) 0.6, Eos # (Auto) 0.0, Baso # (Auto) 0.1, PT 14.2 H, INR 1.30 H, APTT 26.6, Sodium 129 L, Potassium 5.5 H, Chloride 98, Carbon Dioxide 17 L, Anion Gap 19.5 H, BUN 33 H, Creatinine 1.10, Estimated Creat Clear 69, Estimated GFR 67, Est GFR ( Amer) 81, Glucose 193 H, Calcium 7.9 L, Total Bilirubin 1.4 H, AST 162 H, ALT 147 H, Alkaline Phosphatase 100, Total Protein 7.0, Albumin 3.8, Globulin 3.2, Albumin/Globulin Ratio 1.2, HIV 1&2 Antibody Rapid Nonreactive 12/06/23 17:43: Stool Occult Blood Positive A 12/06/23 18:36: VBG pH 7.33, VBG pCO2 33.9 L, VBG pO2 36.8, VBG HCO3 17.3 L, VBG Total CO2 18.3 L, VBG O2 Saturation 66.5, VBG Base Excess -8.7 L, VBG Lactic Acid 2.9 H 12/06/23 21:20: Sodium 130 L, Potassium 4.8, Chloride 104, Carbon Dioxide 16 L, Anion Gap 14.8, BUN 30 H, Creatinine 0.90, Estimated Creat Clear 72, Estimated GFR 84, Est GFR ( Amer) 102 D, Glucose 147 H D, Lactate 1.7, Calcium 7.0 L, Acetone Level Small 12/06/23 21:33: POC Glucose 155 H 12/06/23 : Hemoglobin A1c 9.2 H I & O for Last 24 hours: Intake & Output 12/03/23 12/04/23 12/05/23 12/06/23 23:59 23:59 23:59 23:59 Output Total 0 / 0 Balance 0 / 0 Weight 71.94 kg Constitutional Constitutional: no acute distress *Routine HEENT Exam Head: Present normocephalic Eye: Present EOMI and PERRL ENT: Present mucous membranes dry Comments: Broken teeth and dental caries noted of the upper teeth *Routine Neck Exam Neck: Present supple; Absent lymphadenopathy *Routine Respiratory Exam Respiratory: Present CTA bilaterally *Routine Cardiovascular Exam Cardiovascular: Present RRR (Atrial fibrillation with RVR noted) *Routine Abdominal Exam Abdominal: Present soft and normoactive bowel sounds; Absent tenderness *Routine Rectal Exam Rectal:: deferred *Routine Genitalia Exam Genitalia:: deferred *Routine Extremities Exam Extremities: Absent cyanosis, clubbing or edema *Routine Skin Exam Skin: Present warm; Absent rash *Routine Neurological Exam Neurological: Present alert and oriented X3 Assessment and Plan *Assessment and plan (1) GIB (gastrointestinal bleeding): Status: Acute Qualifiers: GI bleed type/associated pathology: melena Qualified Code(s): K92.1 - Melena Category: Medical Code(s): K92.2 - Gastrointestinal hemorrhage, unspecified (2) Chronic congestive heart failure with left ventricular diastolic dysfunction: Status: Acute Category: Medical Code(s): I50.32 - Chronic diastolic (congestive) heart failure (3) Paroxysmal atrial fibrillation: Status: Acute Category: Medical Code(s): I48.0 - Paroxysmal atrial fibrillation (4) Type 2 diabetes mellitus with peripheral neuropathy: Status: Chronic Category: Medical Code(s): E11.42 - Type 2 diabetes mellitus with diabetic polyneuropathy (5) HLD (hyperlipidemia): Status: Chronic Qualifiers: Hyperlipidemia type: mixed hyperlipidemia Qualified Code(s): E78.2 - Mixed hyperlipidemia Category: Medical Code(s): E78.5 - Hyperlipidemia, unspecified (6) HTN (hypertension): Status: Chronic Qualifiers: Hypertension type: essential hypertension Qualified Code(s): I10 - Essential (primary) hypertension Category: Medical Code(s): I10 - Essential (primary) hypertension (7) CAD (coronary artery disease): Status: Chronic Qualifiers: Associated angina: without angina Coronary Disease-Associated Artery/Lesion type: [place] artery [place] vs. transplanted heart: [place] heart Qualified Code(s): I25.10 - Atherosclerotic heart disease of [place] coronary artery without angina pectoris Category: Medical Code(s): I25.10 - Atherosclerotic heart disease of [place] coronary artery without angina pectoris (8) High anion gap metabolic acidosis: Status: Acute Category: Medical Code(s): E87.29 - Other acidosis Plan #GI bleed Reports melena with positive occult stool. Continue daily Protonix GI consult in AM. Will hold aspirin and Eliquis at this time. Patient reports last dose this morning. Hemoglobin stable N.p.o. with maintenance IV fluids #Elevated anion gap metabolic acidosis Patient actually with normal pH of 7.33 but elevated gap of 19 with a CO2 of 17 Also has elevated hemoglobin, likely element of dehydration/hemoconcentration. Reports poor p.o. intake secondary to teeth. Patient also has likely active infection of dental caries/abscess of his teeth Received IV fluids in the emergency department with robust improvement in metabolic condition Repeat anion gap of 14 with a CO2 of 16. Will continue with IV fluid administration #Hyponatremia Sodium of 129 with prior sodium of 129 with prior sodium of 133 6 days ago Likely hypovolemic hyponatremia. Improving with IV fluids #Hyperkalemia Potassium of 5.5. Likely secondary to hemoconcentration Improved after IV fluids to 4.8 No EKG changes. Continue with maintenance IV fluids #T2DM with hyperglycemia Continue long-acting and sliding scale insulin A1c 9.2 #Paroxysmal A-fib Patient noted to have atrial fibrillation with RVR in the emergency department with heart rate in the 130s. Improved after IV metoprolol. Patient has not taken his home dose of metoprolol and 150 mg XL twice daily. Will provide dose now. Has improved after IV fluids as well. Cardiac telemetry, continue to monitor #CAD #Hypertension Resume medications once appropriate. Holding aspirin and Eliquis at this time #Chronic diastolic heart failure Appears euvolemic or mildly dehydrated at this time. Will continue with maintenance IV fluids. Monitor closely. Rounded on patient after nurse practitioner. Personally examined and interviewed patient. Agree with exam findings and care plan as documented.
[2023-12-06] MEDS: 0.9 % SODIUM CHLORIDE 1000ML 1,000 ML 100 ML IV (22:37)
[2023-12-06 22:38] LABS: Reflex Lactic Add Lactic Reflex
[2023-12-06] MEDS: METOPROLOL SUCCINATE XL 100MG TABLET 100 MG PO (22:58)
[2023-12-06 23:10] LABS: Microscopic, Urine URINE MICROSCOPIC (MICROSCOPIC)
[2023-12-06 23:12] LABS: Appearance,Urine CLEAR (Clear); Bilirubin,Urine Negative (Negative); Blood, Urine Negative (Negative); Color,Urine YELLOW (Yellow); Glucose,Urine (UA) 3+ (Negative); Ketones,Urine 2+ (Negative); Leukocyte Esterase,Urine Negative (Negative); Nitrate,Urine Negative (Negative); Protein,Urine Negative (Negative); Urobilinogen,Urine 0.2 EU/dl (0.2)
[2023-12-06 23:31] LABS: Lactic Acid Follow Up (RFLX 1) 1.7 mmol/L (0.7-2.1)
[2023-12-06 23:43] LABS: Squamous Epithelial Cell,Urine Occasional #/hpf (0-5); WBC,Urine Occasional #/hpf (0-3)
[2023-12-07] VITALS (19 sets, daily range): BP systolic 95–144; BP diastolic 54–78; PULSE 57–120; RESP 15–28; TEMP 36.7–37.6; O2SAT 91–97; BMI 27.1
--- NOTE | 2023-12-07 01:22 | PC.NURSE ---
Addendum entered by Brenna Padilla RN 12/07/23 04:59: Since taking over care the patient has had x2 BM. the last BM was tarry and black in color. Patient has remained AxO and on RA but does complain of some weakness Original Note: Took over care from Ramakrishna Cordero at 1am. Took patient to bathroom, stand by assist. Patient had a BM and voided. 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
[2023-12-07] MEDS: humaLOG 100 UNITS/ML 10ML VIAL (SSI) SUBCUT (05:12)
[2023-12-07] MEDS: CLINDAMYCIN PHOSPHATE/D5W 600 MG/50 ML PIGGYBACK 100 MG IV ×3 (05:13→20:36)
[2023-12-07 05:23] LABS: POC Glucose,Bedside 178 (70-110)
[2023-12-07 07:08] LABS: Basophils % 0.2 % (0.1-2.0); Eosinophils % 0.2 % (0.1-12.0); Hematocrit 43.7 % (42.0-52.0); Lymphocytes # 1.8 K/mm3 (0.7-4.5); Lymphocytes % 19.7 % (10-50); Mean Corpuscular Hemoglobin 29.3 pg (27.0-31.2); Mean Corpuscular Volume 86.2 fl (80-94); Mean Platelet Volume 7.6 fl (7.4-10.4); Monocytes # 1.4 K/mm3 (0.1-1.0); Monocytes % 15.2 % (1.7-9.3); Neutrophils % 64.7 % (37.0-80.0); Platelet Count 222 K/mm3 (142-424); Red Blood Count 5.07 M/mm3 (4.60-6.20); Red Cell Distribution Width 15.7 % (11.5-17.5); White Blood Count 9.2 K/mm3 (4.8-10.8)
[2023-12-07 07:12] LABS: Albumin Level 2.8 g/dl (3.5-5.0); Chloride 103 mmol/L (98-107); Potassium 4.2 mmoL/L (3.5-5.1); Sodium 131 mmol/L (136-145)
[2023-12-07 07:14] LABS: Alanine Aminotransferase 146 U/L (12-78); Blood Urea Nitrogen 23 mg/dl (9-20); Creatinine Clearance Estimated 72 mL/min (50-200); Estimated Glomerular Filt Rate 84 ml/min (>60); GFR (African American) 102 ML/MIN (>60)
[2023-12-07 07:15] LABS: Albumin/Globulin Ratio 1.1 (1.1-1.8); Alkaline Phosphatase 120 U/L (38-126); Anion Gap 9.2 mEq/L (5-15); Aspartate Amino Transferase 192 U/L (17-59); Calcium 6.9 mg/dl (8.4-10.2); Carbon Dioxide 23 mmol/L (22.0-30.0); Globulin 2.6 g/dL (1.3-3.2); Glucose 186 mg/dl (74-100); Magnesium 2.3 mg/dl (1.6-2.3); Total Protein,Serum 5.4 g/dl (6.3-8.2)
[2023-12-07 07:21] LABS: C-Reactive Protein 38.2 mg/L (0-4)
[2023-12-07 07:45] LABS: Erythrocyte Sedimentation Rate 16 mm/hr (0-20)
[2023-12-07] MEDS: METOPROLOL SUCCINATE XL 100MG TABLET 100 MG PO ×2 (09:35→20:35)
[2023-12-07] MEDS: METOPROLOL SUCCINATE XL 50MG TABLET 50 MG PO ×2 (09:35→20:34)
[2023-12-07] MEDS: CALCIUM GLUC IN NACL, ISO-OSM 2 GM/100 ML BAG IV (09:35)
[2023-12-07] MEDS: GABAPENTIN 300MG CAPSULE 300 MG PO (09:35)
[2023-12-07] MEDS: PANTOPRAZOLE 40MG VIAL 40 MG IV ×2 (09:36→20:35)
[2023-12-07 11:30] LABS: POC Glucose,Bedside 122 (70-110)
[2023-12-07] MEDS: 0.9 % SODIUM CHLORIDE 1000ML 1,000 ML 100 ML IV (13:10)
--- NOTE | 2023-12-07 14:22 | EXP.ANES.CKL ---
[facility] Disclaimer: The information contained in this section may have been updated after the patient was seen, as this information can be updated by other users. Medical History Chronic a-fib Palpitations Ischemic cardiomyopathy Sinus tachycardia Abnormal electrocardiography Right bundle branch block HLD (hyperlipidemia) HTN (hypertension) CAD (coronary artery disease) Social History Smoking Status: Never smoker alcohol intake: never substance use type: denies use current occupational status: retired Travel in the last 8 weeks: Inside the [facility] Anesthesia Checklist Patient Identification Patient Identification: Arm Band Structural Data Admitted From: Home Planned Operative Procedure/s: EGD Consent for Planned Operative Procedure(s) Verified: Yes Verified Documents: Surgical Consent and History and Physical NPO Status Verified Time NPO: 00:00 Additional verifications Anesthesia Reactions: No Airway Assessment Mallampati Score:: Class II C-Spine Mobility Assessed: Yes TMJ Mobility Assessed: Yes Dentition: Edentulous Neurological Assessment Level of Consciousness: Awake, Alert and Appropriate Anesthesia Plan Anesthesia Risk discussed: Yes Anesthesia Plan: Verified ASA Class: III Anesthesia Type: MAC
--- NOTE | 2023-12-07 14:50 | HMH.PHAINT1 ---
Pharmacy Intervention Comments: home medication list verified using list from outpatient pharmacy
--- NOTE | 2023-12-07 15:03 | P.PCN_ITS ---
[facility] Procedure Note Date: 12/07/23 Time: 15:04 Procedure Note:: Upper Endoscopy Procedure Report: Esophagogastroduodenoscopy with cold biopsies Endoscopost: Arnoldo Hutchins II, MD Referring Physician: Yunior Langford MD Date of Procedure: December 07, 2023 Equipment: Olympus GIF 190 standard upper endoscope Sedation: MAC sedation Indications: Mr. Weaver is a 68-year-old gentleman with presumed upper GI bleed. The patient has had melena/Dark stools for 3 days. He does take Eliquis and baby aspirin. The patient's hemoglobin and hematocrit were 15.0 and 43.7 today. Yesterday he was hemoconcentrated and his hemoglobin 18.0 and 53.4 were slightly elevated. He has received hydration. The patient did have elevated ALT 146, AST of 192. His total bilirubin 1.0 and alkaline phosphatase 120 were normal. He did not have any abdominal imaging. Procedure: Prior to the procedure, a history and physical exam was performed, and patient's medications and allergies were reviewed. The risks, benefits and alternatives of the sedation and procedure were discussed with the patient. All questions were answered and informed consent was obtained. The patient was brought to the procedure room. Patient identification and proposed procedure were verified by the physician and the nurse. The patient was placed in a left lateral decubitus position and the scope was passed under direct vision. Throughout the procedure, the patient's blood pressure, pulse, and oxygen saturations were monitored continuously. The upper GI endoscopy was accomplished without difficulty. The patient tolerated the procedure well. Findings: The scope was passed directly into the upper esophagus and advanced to the third portion of the duodenum. There were scattered superficial ulcerations within the first, second and third portion of the duodenum. All of these were examined closely and there were at least 7 ulcers identified. One had a flat pigmented spot that was felt to be a possible underlying vessel and this was ablated/coagulated using soft coagulation/hot biopsy forceps. The duo denal bulb was normal and there were no ulcerations within the bulb of the duodenum or pylorus. The scope was withdrawn through a normal pylorus into the stomach. There was some mild linear reactive gastropathy of the antrum with bile reflux. The body and fundus were grossly normal. There were no AVMs, gastric ulcers, Tracie-Quiles tear or gastric varices. Upon retroflexion there was no hiatal hernia. Biopsies were taken from the duodenum/first portion and from the antrum/body of the stomach separately. The scope was then withdrawn into the esophagus. There was no evidence of reflux esophagitis, Hill's or esophageal varices. The remainder of the esophageal mucosa was normal. Impression: 1. Scattered superficial duodenal ulcers (6-7) in post bulbar duodenum (first, second and third portion of duodenum)?soft coagulation applied to 1 ulcer with flat pigmented spot/stigmata 2. Moderate reactive gastropathy of the antrum Plan: I will follow-up the biopsies to rule out H. pylori. I will once again inquire about use of NSAIDs. The patient is on baby aspirin. I would continue higher dose PPI therapy plus misoprostol.
--- NOTE | 2023-12-07 16:17 | P.PN_ITS ---
Subjective *Date: 12/07/23 *Time: 22:37 Interval history: Still having some abdominal discomfort this morning. No nausea or vomiting. N.p.o. awaiting scope. Denies any further black stools. Stable on room air. Afebrile. Medical Exam Vital signs and Labs for Last 24 Hours: Vital Signs Temp Pulse Pulse Resp BP BP Pulse Ox 12/07/23 16:00 101 H 22 101/72 L 91 L 12/07/23 16:00 101 H 22 101/72 L 91 L 12/07/23 15:39 101 H 18 118/58 L 92 L 12/07/23 15:29 104 H 17 101/61 L 92 L 12/07/23 15:19 99.7 F H 103 H 15 95/62 L 94 L 12/07/23 14:52 12/07/23 11:44 98.0 F 57 L 24 113/63 95 12/07/23 08:00 100 H 12/07/23 08:00 98.4 F 98 H 22 100/58 L 93 L 12/07/23 06:54 12/07/23 04:59 12/07/23 04:00 100 H 12/07/23 04:00 98.2 F 103 H 18 116/69 94 L 12/07/23 03:00 12/07/23 00:27 12/07/23 00:00 90 12/07/23 00:00 98.0 F 108 H 20 106/61 L 92 L 12/06/23 23:00 12/06/23 22:24 120 H 12/06/23 22:04 12/06/23 21:00 12/06/23 20:48 98.4 F 113 H 16 147/68 H 96 12/06/23 20:46 98.4 F 100 H 24 104/61 L 12/06/23 20:00 26 H 104/61 L 12/06/23 19:31 100 H 33 H 109/59 L 95 12/06/23 19:01 100 H 29 H 102/72 L 97 12/06/23 18:30 83 27 H 133/69 97 12/06/23 18:00 67 119/75 96 12/06/23 17:44 46 L 105/87 L 97 O2 Del Method O2 Flow Rate 12/07/23 16:00 Room Air 12/07/23 16:00 Room Air 12/07/23 15:39 Room Air 12/07/23 15:29 Room Air 12/07/23 15:19 Simple Mask 6 12/07/23 14:52 Nasal Cannula 5 12/07/23 11:44 Room Air 12/07/23 08:00 12/07/23 08:00 Room Air 12/07/23 06:54 Room Air 12/07/23 04:59 Room Air 12/07/23 04:00 12/07/23 04:00 Room Air 12/07/23 03:00 Room Air 12/07/23 00:27 Room Air 12/07/23 00:00 12/07/23 00:00 Room Air 12/06/23 23:00 Room Air 12/06/23 22:24 12/06/23 22:04 Room Air 12/06/23 21:00 Room Air 12/06/23 20:48 Room Air 12/06/23 20:46 Room Air 12/06/23 20:00 12/06/23 19:31 12/06/23 19:01 12/06/23 18:30 Room Air 12/06/23 18:00 Room Air 12/06/23 17:44 Room Air Intake and Output 12/07/23 12/07/23 12/07/23 07:59 15:59 23:59 Intake Total 0 / 0 Output Total 0 / 0 0 / 0 Balance 0 / 0 0 / 0 Intake: Intake, Oral Amount 0 / 0 Output: Output, Urine Amount 0 / 0 0 / 0 Other: Number of Unmeasured Voids 1 1 Number of Bowel Movements 1 Weight 71.94 kg Patient Weight 12/07/23 23:59 Weight 71.94 kg Laboratory Results - last 24 hr 12/06/23 15:20: WBC 11.0 H, RBC 6.20, Hgb 18.0, Hct 53.4 H, MCV 86.2, MCH 29.0, MCHC 33.7, RDW 15.6, Plt Count 259, MPV 8.1, Neut % (Auto) 82.4 H, Lymph % (Auto) 11.9, [place] % (Auto) 5.0, Eos % (Auto) 0.1, Baso % (Auto) 0.5, Neut # (Auto) 9.1 H, Lymph # (Auto) 1.3, [place] # (Auto) 0.6, Eos # (Auto) 0.0, Baso # (Auto) 0.1, PT 14.2 H, INR 1.30 H, APTT 26.6, HIV 1&2 Antibody Rapid Nonreactive 12/06/23 17:43: Stool Occult Blood Positive A 12/06/23 18:36: VBG pH 7.33, VBG pCO2 33.9 L, VBG pO2 36.8, VBG HCO3 17.3 L, VBG Total CO2 18.3 L, VBG O2 Saturation 66.5, VBG Base Excess -8.7 L, VBG Lactic Acid 2.9 H 12/06/23 21:20: Sodium 130 L, Potassium 4.8, Chloride 104, Carbon Dioxide 16 L, Anion Gap 14.8, BUN 30 H, Creatinine 0.90, Estimated Creat Clear 72, Estimated GFR 84, Est GFR ( Amer) 102 D, Glucose 147 H D, Lactate 1.7, Calcium 7.0 L, Acetone Level Small 12/06/23 21:33: POC Glucose 155 H 12/06/23 22:40: Urine Color Yellow, Urine Appearance Clear, Urine pH 6.0, Ur Specific [place] 1.020, Urine Protein Negative, Urine Glucose (UA) 3+, Urine Ketones 2+, Urine Blood Negative, Urine Nitrate Negative, Urine Bilirubin Negative, Urine Urobilinogen 0.2, Ur Leukocyte Esterase Negative, Urine RBC None, Urine WBC Occasional, Ur Squamous Epith Cells Occasional, Urine Bacteria None 12/06/23 23:15: Lactate 1.7 12/06/23 : Hemoglobin A1c 9.2 H 12/07/23 05:10: POC Glucose 178 H 12/07/23 05:55: WBC 9.2, RBC 5.07, Hgb 15.0 D, Hct 43.7, MCV 86.2, MCH 29.3, MCHC 34.0, RDW 15.7, Plt Count 222, MPV 7.6, Neut % (Auto) 64.7, Lymph % (Auto) 19.7, [place] % (Auto) 15.2 H, Eos % (Auto) 0.2, Baso % (Auto) 0.2, Neut # (Auto) 6.0, Lymph # (Auto) 1.8, [place] # (Auto) 1.4 H, Eos # (Auto) 0.0, Baso # (Auto) 0.0, ESR 16, Sodium 131 L, Potassium 4.2, Chloride 103, Carbon Dioxide 23, Anion Gap 9.2, BUN 23 H, Creatinine 0.90, Estimated Creat Clear 72, Estimated GFR 84, Est GFR ( Amer) 102, Glucose 186 H D, Calcium 6.9 L, Magnesium 2.3, Total Bilirubin 1.0, AST 192 H, ALT 146 H, Alkaline Phosphatase 120, C-Reactive Protein 38.2 H, Total Protein 5.4 L, Albumin 2.8 L D, Globulin 2.6, Albumin/Globulin Ratio 1.1 12/07/23 11:22: POC Glucose 122 H I & O for Labs for Last 24 Hours: Intake & Output 12/04/23 12/05/23 12/06/23 12/07/23 23:59 23:59 23:59 23:59 Intake Total 1800 / 1800 0 / 0 Output Total 50 / 50 0 / 0 Balance 1750 / 1750 0 / 0 Weight 71.94 kg 71.94 kg Constitutional: Present no acute distress, average body habitus and cooperative Head: Present atraumatic and normocephalic ENT: Present normal exam Respiratory: Present normal respiratory effort; Absent rhonchi, wheezes or crackles Cardiac: Present Reg Rate and Rhythm GI: Present soft, tenderness (mild epigastric) and normal bowel sounds; Absent distention Extremities: Present normal inspection and full ROM Skin: Present intact; Absent erythema Neuro: Present Grossly Intact and moves all extremities Assessment and Plan *Assessment and plan (1) Gastric peptic ulcer: Status: Acute Category: Medical Code(s): K25.9 - Gastric ulcer, unspecified as acute or chronic, without hemorrhage or perforation (2) GIB (gastrointestinal bleeding): Status: Acute Qualifiers: GI bleed type/associated pathology: melena Qualified Code(s): K92.1 - Melena Category: Medical Code(s): K92.2 - Gastrointestinal hemorrhage, unspecified (3) Chronic congestive heart failure with left ventricular diastolic dysfunction: Status: Acute Category: Medical Code(s): I50.32 - Chronic diastolic (congestive) heart failure (4) Paroxysmal atrial fibrillation: Status: Acute Category: Medical Code(s): I48.0 - Paroxysmal atrial fibrillation (5) Type 2 diabetes mellitus with peripheral neuropathy: Status: Chronic Category: Medical Code(s): E11.42 - Type 2 diabetes mellitus with diabetic polyneuropathy (6) HLD (hyperlipidemia): Status: Chronic Qualifiers: Hyperlipidemia type: mixed hyperlipidemia Qualified Code(s): E78.2 - Mixed hyperlipidemia Category: Medical Code(s): E78.5 - Hyperlipidemia, unspecified (7) HTN (hypertension): Status: Chronic Qualifiers: Hypertension type: essential hypertension Qualified Code(s): I10 - Essential (primary) hypertension Category: Medical Code(s): I10 - Essential (primary) hypertension (8) CAD (coronary artery disease): Status: Chronic Qualifiers: Coronary Disease-Associated Artery/Lesion type: [place] artery [place] vs. transplanted heart: [place] heart Associated angina: without angina Qualified Code(s): I25.10 - Atherosclerotic heart disease of [place] coronary artery without angina pectoris Category: Medical Code(s): I25.10 - Atherosclerotic heart disease of [place] coronary artery without angina pectoris (9) High anion gap metabolic acidosis: Status: Acute Category: Medical Code(s): E87.29 - Other acidosis Plan 68-year-old male on anticoagulation who presented with black stools. Admitted to medicine for further management. Evaluated by GI, taken for scope today. Duodenal ulcers noted. Continue medical management. Serial H&H. Continues to require inpatient management. Advancing diet. Problems addressed as follows Gastric ulcer disease# #GI bleed Reports melena with positive occult stool Case reviewed with GI, status post EGD. Found to have gastric ulcers. Slight oozing but no active bleeding. Recommend continuing Protonix 40 mg twice daily. Initiate misoprostol. Hemoglobin 15 this morning. BUN 23, creatinine 0.9. Repeat CBC, CMP, magnesium ordered for the morning hold aspirin and Eliquis at this time. #Elevated anion gap metabolic acidosis # Type 2 diabetes Patient actually with normal pH of 7.33 but elevated gap of 19 with a CO2 of 17 on admission Labs better this morning. Anion gap of 10. Sodium 131, bicarb 23. Glucose 186. A1c 9.2 Continue sliding scale insulin with fingersticks ACHS. #Hyponatremia Sodium improved to 131 this morning. #Hyperkalemia Potassium normal this morning at 4.2. Magnesium 2.3. No indication for replacement or treatment #Paroxysmal A-fib Patient noted to have atrial fibrillation with RVR in the emergency department with heart rate in the 130s. Improved after IV metoprolol. Rate controlled on home oral dose of metoprolol XL 150 mg twice daily Cardiac telemetry, continue to monitor #CAD #Hypertension Resume medications once appropriate. Holding aspirin and Eliquis at this time #Chronic diastolic heart failure Appears euvolemic or mildly dehydrated at this time. Will continue with maintenance IV fluids. Monitor closely. Continue Lipitor 40 mg nightly, empagliflozin 10 mg daily Full code Holding anticoagulation Advancing diet
[2023-12-07 17:14] LABS: POC Glucose,Bedside 123 (70-110)
[2023-12-07] MEDS: miSOPROStoL 200 MCG TABLET PO ×2 (17:54→23:34)
--- NOTE | 2023-12-07 18:40 | PC.NURSE ---
patient a&ox4 and vss. Patient went for EGD and had biopsies and a cauterization done. Patient is slightly tachypneic but denies soa.
[2023-12-07] MEDS: ATORVASTATIN 40MG TABLET 40 MG PO (20:34)
[2023-12-07] MEDS: INSULIN GLARGINE 100 UNITS/ML 3ML FLEXPEN 25 UNIT SUBCUT (20:35)
[2023-12-07 20:45] LABS: POC Glucose,Bedside 156 (70-110)
[2023-12-08] VITALS: BP 114/71; PULSE 104; PULSE 110; RESP 20; TEMP 37.1; O2SAT 94
[2023-12-08 04:00] VITALS: BP 94/51; PULSE 89; PULSE 90; RESP 22; TEMP 37.1; O2SAT 92; BMI 27.1
--- NOTE | 2023-12-08 04:26 | PC.NURSE ---
68 yo male pt is A/O X 4. He has been OOB to BR with standby assist. Pt has maintained 02 sats above 90 on RA. He continues to be tachypneic with RR of 24-28 but denies increased SOA. FSBS 156 at 2100.
[2023-12-08] MEDS: CLINDAMYCIN PHOSPHATE/D5W 600 MG/50 ML PIGGYBACK 100 MG IV (05:12)
[2023-12-08] MEDS: miSOPROStoL 200 MCG TABLET PO ×2 (05:12→13:13)
[2023-12-08] MEDS: humaLOG 100 UNITS/ML 10ML VIAL (SSI) SUBCUT ×2 (06:33→11:20)
[2023-12-08 06:42] LABS: Chloride 101 mmol/L (98-107)
[2023-12-08 06:43] LABS: Albumin Level 2.6 g/dl (3.5-5.0); Sodium 130 mmol/L (136-145)
[2023-12-08 06:45] LABS: Alanine Aminotransferase 146 U/L (12-78); Aspartate Amino Transferase 155 U/L (17-59); Blood Urea Nitrogen 15 mg/dl (9-20); Carbon Dioxide 23 mmol/L (22.0-30.0); Creatinine Clearance Estimated 72 mL/min (50-200); Estimated Glomerular Filt Rate 84 ml/min (>60); GFR (African American) 102 ML/MIN (>60)
[2023-12-08 06:46] LABS: Albumin/Globulin Ratio 0.9 (1.1-1.8); Alkaline Phosphatase 113 U/L (38-126); Bilirubin,Total 1.1 mg/dl (0.2-1.3); Calcium 6.8 mg/dl (8.4-10.2); Globulin 2.8 g/dL (1.3-3.2); Glucose 185 mg/dl (74-100); Total Protein,Serum 5.4 g/dl (6.3-8.2)
[2023-12-08 06:51] LABS: Basophils % 0.5 % (0.1-2.0); Eosinophils # 0.1 K/mm3 (0.0-0.4); Eosinophils % 0.8 % (0.1-12.0); Hematocrit 44.4 % (42.0-52.0); Hemoglobin 14.5 g/dL (14.1-18.0); Lymphocytes % 26.1 % (10-50); Mean Corpuscular HGB Conc 32.6 g/dL (31.8-35.4); Mean Corpuscular Hemoglobin 28.7 pg (27.0-31.2); Mean Corpuscular Volume 88.1 fl (80-94); Mean Platelet Volume 7.5 fl (7.4-10.4); Monocytes % 13.5 % (1.7-9.3); Neutrophils # 4.5 K/mm3 (1.8-7.8); Neutrophils % 59.1 % (37.0-80.0); Platelet Count 206 K/mm3 (142-424); Red Blood Count 5.04 M/mm3 (4.60-6.20); Red Cell Distribution Width 15.9 % (11.5-17.5); White Blood Count 7.6 K/mm3 (4.8-10.8)
[2023-12-08 08:00] VITALS: BP 106/56; PULSE 105; RESP 19; TEMP 36.4; O2SAT 94
--- NOTE | 2023-12-08 08:10 | P.PN_ITS ---
Subjective *Date: 12/08/23 *Time: 08:10 Interval history: Patient is tolerating full diet this morning and reports no abdominal pain or discomfort. Patient appears to be doing well and has had no melena or hematemesis overnight. Exam Data for Last 24 hours Vital signs and Labs for Last 24 Hours: Temp Pulse Resp BP Pulse Ox O2 Del Method O2 Flow Rate 98.7 F 89 22 94/51 L 92 L Room Air 6 12/08/23 04:00 12/08/23 04:00 12/08/23 04:00 12/08/23 04:00 12/08/23 04:00 12/08/23 06:48 12/07/23 15:19 Laboratory Results - last 24 hr 12/07/23 11:22: POC Glucose 122 H 12/07/23 17:04: POC Glucose 123 H 12/07/23 20:26: POC Glucose 156 H 12/08/23 05:42: WBC 7.6, RBC 5.04, Hgb 14.5, Hct 44.4, MCV 88.1, MCH 28.7, MCHC 32.6, RDW 15.9, Plt Count 206, MPV 7.5, Neut % (Auto) 59.1, Lymph % (Auto) 26.1, [place] % (Auto) 13.5 H, Eos % (Auto) 0.8, Baso % (Auto) 0.5, Neut # (Auto) 4.5, Lymph # (Auto) 2.0, [place] # (Auto) 1.0, Eos # (Auto) 0.1, Baso # (Auto) 0.0, Sodium 130 L, Potassium 4.0, Chloride 101, Carbon Dioxide 23, Anion Gap 10.0, BUN 15 D, Creatinine 0.90, Estimated Creat Clear 72, Estimated GFR 84, Est GFR ( Amer) 102, Glucose 185 H, Calcium 6.8 L, Total Bilirubin 1.1, AST 155 H , ALT 146 H, Alkaline Phosphatase 113, Total Protein 5.4 L, Albumin 2.6 L, Globulin 2.8, Albumin/Globulin Ratio 0.9 L I & O for Last 24 hours: Intake & Output 12/05/23 12/06/23 12/07/23 12/08/23 23:59 23:59 23:59 23:59 Intake Total 1800 / 1800 0 / 600 600 / 600 Output Total 50 / 50 0 / 0 0 / 0 Balance 1750 / 1750 0 / 600 600 / 600 Weight 158 lb 9.6 oz 158 lb 9.6 oz 158 lb 9.609 oz Assessment and Plan *Assessment and plan (1) Duodenal ulcer with hemorrhage: Status: Acute Category: Medical Code(s): K26.4 - Chronic or unspecified duodenal ulcer with hemorrhage Plan 1. Duodenal ulcer disease with upper GI bleeding. This has stabilized. The patient has had no further bleeding and his hemoglobin and hematocrit are stable today(Hemoglobin 14.5 and hematocrit 44.4). I will check iron studies today and begin repletion if his iron levels are low. I would also avoid NSAIDs. I will check biopsies to rule out H. pylori. As long as the patient tolerates a diet today he may be discharged.
[2023-12-08] MEDS: METOPROLOL SUCCINATE XL 50MG TABLET 50 MG PO (08:25)
[2023-12-08] MEDS: GABAPENTIN 300MG CAPSULE 300 MG PO (08:25)
[2023-12-08] MEDS: METOPROLOL SUCCINATE XL 100MG TABLET 100 MG PO (08:25)
[2023-12-08] MEDS: PANTOPRAZOLE 40MG VIAL 40 MG IV (08:26)
[2023-12-08 10:14] LABS: HCV Ab Non Reactive (Non Reactive)
[2023-12-08 11:45] LABS: POC Glucose,Bedside 223 (70-110)
[2023-12-08 12:00] VITALS: BP 118/66; PULSE 88; RESP 20; TEMP 36.6; O2SAT 96
--- NOTE | 2023-12-08 14:42 | P.DS_ITS ---
General Admission date:: 12/06/23 HPI HPI HPI: This is a 68-year-old male with past medical history of chronic diastolic heart failure, paroxysmal A-fib on Eliquis, T2DM, ischemic cardiomyopathy, hypertension, hyperlipidemia who presents to the emergency department with complaints of dark stool. He reports dark black stool for approximately 3 days. He also complains of dental pain with broken teeth. States that he saw his primary care provider recently and underwent CT imaging of his head and face and was noted to have dental abscesses. States that he is in the process of getting these taken care of but any treatment for these yet. He states he feels generally poor all over. Denies any overt abdominal pain. Denies any hematic emesis. States that he has been on his Eliquis and aspirin as prescribed for his chronic Emergency department workup notable for hemoglobin of 18 and hematocrit of 53. White blood count of 11. INR 1.3 sodium of 129, potassium 5.5, anion gap 19, and CO2 of 17. Glucose of 194. pH 7.3, lactic acid 2.9. He is Hemoccult stool positive. Given the above-mentioned findings he will be admitted to the hospital service. Hospital Course Hospital Course Hospital Course: 68-year-old male on anticoagulation who presented with black stools. Admitted to medicine for further management. #Peptic ulcer disease #GI bleed Reports melena with positive occult stool Case reviewed with GI, status post EGD. Scattered superficial duodenal ulcers (6-7) in post bulbar duodenum (first, second and third portion of duodenum)?soft coagulation applied to 1 ulcer with flat pigmented spot/stigmata. Hgb stable 14.5 today, vitals stable. Discharged with Protonix 40mg BID, misoprostol 200mcg Q6h. Will follow-up with GI within 1 week. # Type 2 diabetes Continue home Sherly Love. #Hyponatremia Sodium improved to 130 this morning. #Paroxysmal A-fib Patient noted to have atrial fibrillation with RVR in the emergency department with heart rate in the 130s. Improved after IV metoprolol. Rate controlled on home oral dose of metoprolol XL 150 mg twice daily Eliquis 5mg BID #CAD Continue aspirin and Eliquis, low risk for rebleed per GI. #Chronic diastolic heart failure Continue Lipitor 40 mg nightly, empagliflozin 10 mg daily Exam Data for Last 24 hours Vital signs and Labs for Last 24 Hours: Temp Pulse Resp BP Pulse Ox O2 Del Method O2 Flow Rate 97.8 F 88 20 118/66 96 Room Air 6 12/08/23 12:00 12/08/23 12:00 12/08/23 12:00 12/08/23 12:00 12/08/23 12:00 12/08/23 13:00 12/07/23 15:19 Laboratory Results - last 24 hr 12/06/23 15:20: Hepatitis C Antibody Non reactive 12/07/23 17:04: POC Glucose 123 H 12/07/23 20:26: POC Glucose 156 H 12/08/23 05:42: WBC 7.6, RBC 5.04, Hgb 14.5, Hct 44.4, MCV 88.1, MCH 28.7, MCHC 32.6, RDW 15.9, Plt Count 206, MPV 7.5, Neut % (Auto) 59.1, Lymph % (Auto) 26.1, [place] % (Auto) 13.5 H, Eos % (Auto) 0.8, Baso % (Auto) 0.5, Neut # (Auto) 4.5, Lymph # (Auto) 2.0, [place] # (Auto) 1.0, Eos # (Auto) 0.1, Baso # (Auto) 0.0, Sodium 130 L, Potassium 4.0, Chloride 101, Carbon Dioxide 23, Anion Gap 10.0, BUN 15 D, Creatinine 0.90, Estimated Creat Clear 72, Estimated GFR 84, Est GFR ( Amer) 102, Glucose 185 H, Calcium 6.8 L, Total Bilirubin 1.1, AST 155 H , ALT 146 H, Alkaline Phosphatase 113, Total Protein 5.4 L, Albumin 2.6 L, Globulin 2.8, Albumin/Globulin Ratio 0.9 L 12/08/23 11:17: POC Glucose 223 H I & O for Last 24 hours: Intake & Output 12/05/23 12/06/23 12/07/23 12/08/23 23:59 23:59 23:59 23:59 Intake Total 1800 / 1800 0 / 600 1500 / 1500 Output Total 50 / 50 0 / 0 0 / 0 Balance 1750 / 1750 0 / 600 1500 / 1500 Weight 71.94 kg 71.94 kg 71.94 kg Constitutional Constitutional: no acute distress *Routine HEENT Exam Head: Present normocephalic Eye: Present EOMI and PERRL ENT: Present mucous membranes moist *Routine Neck Exam Neck: Present supple; Absent lymphadenopathy *Routine Respiratory Exam Respiratory: Present CTA bilaterally *Routine Cardiovascular Exam Cardiovascular: Present RRR *Routine Abdominal Exam Abdominal: Present soft and normoactive bowel sounds; Absent tenderness *Routine Extremities Exam Extremities: Absent cyanosis, clubbing or edema *Routine Skin Exam Skin: Present warm; Absent rash *Routine Neurological Exam Neurological: Present alert and oriented X3 Results Data Completed and Pending Labs on day of discharge: Labs from last 24 hours 12/08/23 12/08/23 12/07/23 11:17 05:42 20:26 WBC 7.6 RBC 5.04 Hgb 14.5 Hct 44.4 MCV 88.1 MCH 28.7 MCHC 32.6 RDW 15.9 Plt Count 206 MPV 7.5 Neut % (Auto) 59.1 Lymph % (Auto) 26.1 [place] % (Auto) 13.5 H Eos % (Auto) 0.8 Baso % (Auto) 0.5 Neut # (Auto) 4.5 Lymph # (Auto) 2.0 [place] # (Auto) 1.0 Eos # (Auto) 0.1 Baso # (Auto) 0.0 Sodium 130 L Potassium 4.0 Chloride 101 Carbon Dioxide 23 Anion Gap 10.0 BUN 15 D Creatinine 0.90 Estimated Creat Clear 72 Estimated GFR 84 Est GFR ( Amer) 102 Glucose 185 H POC Glucose 223 H 156 H Calcium 6.8 L Total Bilirubin 1.1 AST 155 H ALT 146 H Alkaline Phosphatase 113 Total Protein 5.4 L Albumin 2.6 L Globulin 2.8 Albumin/Globulin Ratio 0.9 L Hepatitis C Antibody 12/07/23 12/06/23 17:04 15:20 WBC RBC Hgb Hct MCV MCH MCHC RDW Plt Count MPV Neut % (Auto) Lymph % (Auto) [place] % (Auto) Eos % (Auto) Baso % (Auto) Neut # (Auto) Lymph # (Auto) [place] # (Auto) Eos # (Auto) Baso # (Auto) Sodium Potassium Chloride Carbon Dioxide Anion Gap BUN Creatinine Estimated Creat Clear Estimated GFR Est GFR ( Amer) Glucose POC Glucose 123 H Calcium Total Bilirubin AST ALT Alkaline Phosphatase Total Protein Albumin Globulin Albumin/Globulin Ratio Hepatitis C Antibody Non reactive DS: Diagnosis Discharge Diagnosis (1) Duodenal ulcer with hemorrhage: Status: Acute Code(s): K26.4 - Chronic or unspecified duodenal ulcer with hemorrhage Meds Home Medications and Allergies Home Medications ?Medication ?Instructions ?Recorded ?Confirmed ?Type aspirin 81 mg tablet,delayed 81 mg PO DAILY 09/17/20 12/06/23 History release apixaban 5 mg tablet (Eliquis) 5 mg PO BID Blood thinner #180 tabs 12/04/22 12/07/23 Rx atorvastatin 40 mg tablet 40 mg PO HS 30 days #90 tabs 12/04/22 12/06/23 Rx empagliflozin 10 mg tablet 10 mg PO DAILY Diabetes #90 tabs 12/04/22 12/07/23 Rx (Jardiance) gabapentin 300 mg capsule 300 mg PO DAILY #90 caps 07/17/23 12/06/23 Rx sitagliptin phos 100 mg-metformin 1 tab PO DAILY 09/23/23 12/07/23 History ER 1,000 mg tablet,extend rel 24h mp (Janumet XR) metoprolol succinate 50 mg 50 mg PO BID 12/06/23 12/07/23 History tablet,extended release 24 hr metoprolol succinate 100 mg 100 mg PO BID 12/07/23 12/07/23 History tablet,extended release 24 hr misoprostol 200 mcg tablet 200 mcg PO Q6 30 days #120 tabs 12/08/23 Rx pantoprazole 40 mg tablet,delayed 40 mg PO BID #30 tabs 12/08/23 Rx release (Protonix) New Prescriptions to Start Prescriptions: Juan Hess pantoprazole [Protonix] Juan Noyola Allergies Allergy/AdvReac Type Severity Reaction Status Date / Time chlorpromazine Allergy Unknown DRAWING OF Verified 11/30/23 15:30 [From THORAZINE] MOUTH Discharge Plan Disposition Patient Disposition: Home, Self-Care Follow up Plan Follow up with: Yunior Langford MD [Primary Care Provider] - 12/15/23 10:30 am (Within 1 week) Emma Lomeli APRN [Nurse Practitioner] - 12/21/23 9:30 am Prescriptions/Medication Reconciliation: New misoprostol 200 mcg Tablet 200 mcg PO Q6 30 Days Qty: 120 0RF pantoprazole [Protonix] 40 mg tablet,delayed release (DR/EC) 40 mg PO BID Qty: 30 0RF Continued aspirin 81 mg tablet,delayed release (DR/EC) 81 mg PO DAILY Eliquis 5 mg tablet 5 mg PO BID Qty: 180 1RF atorvastatin 40 mg tablet 40 mg PO HS 30 Days Qty: 90 1RF Jardiance 10 mg tablet 10 mg PO DAILY Qty: 90 1RF Janumet XR 100-1,000 mg tablet, ER multiphase 24 hr 1 tab PO DAILY gabapentin 300 mg capsule 300 mg PO DAILY Qty: 90 1RF metoprolol succinate 50 mg tablet extended release 24 hr 50 mg PO BID Rx Instructions: GIVE WITH 100MG FOR 150MG TOTAL DOSE metoprolol succinate 100 mg tablet extended release 24 hr 100 mg PO BID Rx Instructions: GIVE WITH 50MG FOR 150MG TOTAL DOSE Problem Reconciliation Problems Reviewed?: Yes Patient Discharge Instructions Patient Instructions: DI for Gastrointestinal Bleeding, Gastrointestinal Bleeding Print Language: [place]at[place] Providers Primary Care Provider: Yunior Langford Admit Provider: Giuliano Moya Attending Provider: Giuliano Moya
[2023-12-09 12:33] LABS: POC Glucose,Bedside 159 (70-110)
--- NOTE | 2023-12-09 13:01 | CARE MANAGER ---
Spoke with patient related to hospital discharge. He states he is weak but doing better. He denies any questions or concerns at this time. He has new medications and is aware of follow up appointments. JUD Michael
== END 2023-12-08 16:15 | disposition home or self-care (01) ==
LOC: ER 15:14 → 2ND 20:43
PROVIDERS: Emergency Medicine; Internal Medicine Gastroenterology; Nurse Practitioner Acute Care; Physician Assistant; Admitting Provider Internal Medicine Adolescent Medicine; Emergency Provider Emergency Medicine; PCP Internal Medicine; Visit Provider Internal Medicine Adolescent Medicine
PROC: 0DJ08ZZ Inspection of Upper Intestinal Tract, Via Natural or Artificial Opening Endoscopic (ICD-10-PCS; CPT 43235; principal; 2023-12-07 14:30)
DX: E11.10 Type 2 diabetes mellitus with ketoacidosis without coma (principal); K92.1 Melena; K26.4 Chronic or unspecified duodenal ulcer with hemorrhage; I11.0 Hypertensive heart disease with heart failure; I50.32 Chronic diastolic (congestive) heart failure; I48.0 Paroxysmal atrial fibrillation; E11.42 Type 2 diabetes mellitus with diabetic polyneuropathy; E78.2 Mixed hyperlipidemia; I25.10 Atherosclerotic heart disease of native coronary artery without angina pectoris; I25.5 Ischemic cardiomyopathy; E87.1 Hypo-osmolality and hyponatremia; Z79.01 Long term (current) use of anticoagulants; Z79.899 Other long term (current) drug therapy; Z79.4 Long term (current) use of insulin
CPT/HCPCS: 43239; 36415; 80048; 80053; 81001; 82009; 82272; 82803; 82962; 83036; 83605; 83735; 85025; 85610; 85651; 85730; 86140; 86803; 87389; 88305; 93005; 99285; G0328; G0378; J0736; J7030

== ENCOUNTER 2023-12-16 14:42 | Outpatient (CLI) | payer MEDICARE, SELFPAY ==
[2023-12-16 14:39] LABS: Basophils # 0.1 K/mm3 (0-0.2); Basophils % 0.7 % (0.1-2.0); Eosinophils # 0.1 K/mm3 (0.0-0.4); Eosinophils % 1.2 % (0.1-12.0); Hematocrit 42.4 % (42.0-52.0); Hemoglobin 14.6 g/dL (14.1-18.0); Lymphocytes # 2.9 K/mm3 (0.7-4.5); Lymphocytes % 35.5 % (10-50); Mean Corpuscular HGB Conc 34.5 g/dL (31.8-35.4); Mean Platelet Volume 7.5 fl (7.4-10.4); Monocytes # 0.4 K/mm3 (0.1-1.0); Monocytes % 5.3 % (1.7-9.3); Neutrophils # 4.7 K/mm3 (1.8-7.8); Neutrophils % 57.2 % (37.0-80.0); Platelet Count 307 K/mm3 (142-424); Red Blood Count 4.87 M/mm3 (4.60-6.20); Red Cell Distribution Width 15.8 % (11.5-17.5); White Blood Count 8.2 K/mm3 (4.8-10.8)
[2023-12-16 15:14] LABS: Chloride 101 mmol/L (98-107); Potassium 4.3 mmoL/L (3.5-5.1); Sodium 136 mmol/L (136-145)
[2023-12-16 15:16] LABS: Hemoglobin A1C 8.4 % (4.0-6.0)
[2023-12-16 15:17] LABS: Anion Gap 10.3 mEq/L (5-15); Blood Urea Nitrogen 21 mg/dl (9-20); Calcium 8.4 mg/dl (8.4-10.2); Carbon Dioxide 29 mmol/L (22.0-30.0); Estimated Glomerular Filt Rate 134 ml/min (>60); GFR (African American) 162 ML/MIN (>60); Glucose 121 mg/dl (74-100)
== END 2023-12-16 23:59 | disposition home or self-care (01) ==
LOC: LAB.DROPOF 14:42
PROVIDERS: PCP Internal Medicine; Visit Provider Internal Medicine
DX: E87.1 Hypo-osmolality and hyponatremia (principal); E11.59 Type 2 diabetes mellitus with other circulatory complications; I48.0 Paroxysmal atrial fibrillation; I50.32 Chronic diastolic (congestive) heart failure; K26.4 Chronic or unspecified duodenal ulcer with hemorrhage; E11.42 Type 2 diabetes mellitus with diabetic polyneuropathy; K92.1 Melena
CPT/HCPCS: 80048; 83036; 85025

== ENCOUNTER 2023-12-21 10:01 | Outpatient (CLI) | payer MEDICARE, SELFPAY ==
[2023-12-21 11:02] LABS: Alanine Aminotransferase 63 U/L (12-78); Albumin Level 3.9 g/dl (3.5-5.0); Albumin/Globulin Ratio 1.4 (1.1-1.8); Alkaline Phosphatase 110 U/L (38-126); Anion Gap 9.7 mEq/L (5-15); Aspartate Amino Transferase 42 U/L (17-59); Bilirubin,Total 0.9 mg/dl (0.2-1.3); Blood Urea Nitrogen 17 mg/dl (9-20); Calcium 8.9 mg/dl (8.4-10.2); Carbon Dioxide 32 mmol/L (22.0-30.0); Chloride 101 mmol/L (98-107); Estimated Glomerular Filt Rate 112 ml/min (>60); GFR (African American) 136 ML/MIN (>60); Globulin 2.7 g/dL (1.3-3.2); Glucose 147 mg/dl (74-100); Potassium 4.7 mmoL/L (3.5-5.1); Sodium 138 mmol/L (136-145); Total Protein,Serum 6.6 g/dl (6.3-8.2)
[2023-12-21 11:11] LABS: Total Iron Binding Capacity 298 ug/dL (261-462)
[2023-12-21 11:17] LABS: 25-OH Vitamin D, Total 41.5 ng/mL (30-100)
[2023-12-21 11:36] LABS: Ferritin 173 ng/ml (17.9-464)
[2023-12-21 11:51] LABS: Vitamin B12 961 pg/mL (239-931)
[2023-12-21 13:04] LABS: Iron 79 ug/dL (49-181)
== END 2023-12-21 23:59 | disposition home or self-care (01) ==
LOC: LAB 10:02
PROVIDERS: PCP Internal Medicine; Visit Provider Nurse Practitioner Family
DX: R74.01 Elevation of levels of liver transaminase levels (principal); R53.83 Other fatigue; K92.1 Melena; E55.9 Vitamin D deficiency, unspecified; K26.9 Duodenal ulcer, unspecified as acute or chronic, without hemorrhage or perforation; Z79.899 Other long term (current) drug therapy
CPT/HCPCS: 36415; 80053; 82306; 82607; 82728; 83540; 83550

== ENCOUNTER 2024-03-09 09:13 | Day surgery (SDC) | payer MEDICARE, SELFPAY ==
[2024-03-07 14:29] VITALS: BMI 27.1
[2024-03-09] VITALS (7 sets, daily range): BP systolic 93–155; BP diastolic 45–86; PULSE 64–69; RESP 16–20; TEMP 36.4–37.3; O2SAT 93–100
[2024-03-09] MEDS: LACTATED RINGERS 1000ML 1,000 ML 50 ML IV (10:07)
[2024-03-09 10:23] LABS: POC Glucose,Bedside 78 (70-110)
--- NOTE | 2024-03-09 10:29 | P.PNANES_ITS ---
[facility] Disclaimer: The information contained in this section may have been updated after the patient was seen, as this information can be updated by other users. Medical History Pre-op evaluation Fatigue Drowsiness Foul smelling urine Major depression in complete remission Right foot pain Right ankle swelling Right leg swelling Atrial flutter Epistaxis Suicidal behavior Diabetes Chronic a-fib Palpitations Ischemic cardiomyopathy Sinus tachycardia Abnormal electrocardiography Right bundle branch block HLD (hyperlipidemia) HTN (hypertension) CAD (coronary artery disease) Surgical History (Updated 03/09/24 @ 10:04 by Kandis South RN) Hx of colonoscopy History of inguinal hernia repair, bilateral Family History (Updated 03/08/24 @ 12:22 by Laura Perez RN) Other No significant family history Social History (Updated 03/07/24 @ 14:26 by Laura Perez RN) Smoking Status: Never smoker alcohol intake: never substance use type: denies use current occupational status: retired Travel in the last 8 weeks: None Have you lived/traveled outside [place] in past 30 days?: No Contact w/someone who lives/traveled outside US past 30 days?: No Exposure to someone with infectious disease in past 14 days?: No Do you have a fever (greater than 100.4 F or 38 C)?: No Have you tested positive for COVID-19: No Exposed to someone with COVID-19 in past 14 days?: No Do you have a sore throat?: No Do you have a cough?: No Do you have any weakness?: No Are you experiencing any nausea/vomitting?: No Do you have any diarrhea?: No Are you experiencing any unusual bleeding?: No Do you have any muscle aches/pain?: No Do you have any abdominal pain?: No Are you experiencing loss of taste or smell?: No [facility] Anesthesia Checklist Patient Identification Patient Identification: Arm Band Structural Data Admitted From: Home Planned Operative Procedure/s: Colonoscopy Consent for Planned Operative Procedure(s) Verified: Yes Verified Documents: Surgical Consent and History and Physical NPO Status Verified Time NPO: 07:00 (finished prep) Additional verifications Anesthesia Reactions: No Airway Assessment Mallampati Score:: Class II C-Spine Mobility Assessed: Yes TMJ Mobility Assessed: Yes Dentition: Good Dentition Neurological Assessment Level of Consciousness: Awake, Alert and Appropriate Anesthesia Plan Anesthesia Risk discussed: Yes Anesthesia Plan: Verified ASA Class: III Anesthesia Type: MAC
--- NOTE | 2024-03-09 12:04 | P.HP_ITS ---
History of Present Illness *Admission Date: 03/09/24 *History of present illness: Mr. Weaver is a 68-year-old gentleman who is here for screening colonoscopy/surveillance colonoscopy and it has been 10 years since last colonoscopy. The examination is deemed medically necessary for surveillance colonoscopy. The patient has been seen, interviewed and examined prior to the procedure by both myself and the anesthesia provider. [facility] Disclaimer: The information contained in this section may have been updated after the patient was seen, as this information can be updated by other users. Medical History Pre-op evaluation Fatigue Drowsiness Foul smelling urine Major depression in complete remission Right foot pain Right ankle swelling Right leg swelling Atrial flutter Epistaxis Suicidal behavior Diabetes Chronic a-fib Palpitations Ischemic cardiomyopathy Sinus tachycardia Abnormal electrocardiography Right bundle branch block HLD (hyperlipidemia) HTN (hypertension) CAD (coronary artery disease) Surgical History (Updated 03/09/24 @ 10:04 by Kandis South RN) Hx of colonoscopy History of inguinal hernia repair, bilateral Family History (Updated 03/08/24 @ 12:22 by Laura Perez RN) Other No significant family history Social History (Updated 03/07/24 @ 14:26 by Laura Perez RN) Smoking Status: Never smoker alcohol intake: never substance use type: denies use current occupational status: retired Travel in the last 8 weeks: None Have you lived/traveled outside US in past 30 days?: No Contact w/someone who lives/traveled outside US past 30 days?: No Exposure to someone with infectious disease in past 14 days?: No Do you have a fever (greater than 100.4 F or 38 C)?: No Have you tested positive for COVID-19: No Exposed to someone with COVID-19 in past 14 days?: No Do you have a sore throat?: No Do you have a cough?: No Do you have any weakness?: No Are you experiencing any nausea/vomitting?: No Do you have any diarrhea?: No Are you experiencing any unusual bleeding?: No Do you have any muscle aches/pain?: No Do you have any abdominal pain?: No Are you experiencing loss of taste or smell?: No Other Medical History Have you received the Flu Vaccine for this season: No Have you received the Pneumonia Vaccine: Yes Review of Systems Review of Systems Review of systems (narrative): Negative *Cardiovascular Comments: Negative *Gastrointestinal Comments: Negative *Genitourinary Comments: Negative *Musculoskeletal Comments: Negative *Neurologic Comments: Negative Meds Home Medications and Allergies Home Medications ?Medication ?Instructions ?Recorded ?Confirmed ?Type aspirin 81 mg tablet,delayed 81 mg PO DAILY 09/17/20 03/09/24 History release apixaban 5 mg tablet (Eliquis) 5 mg PO BID Blood thinner #180 tabs 12/04/22 03/09/24 Rx gabapentin 300 mg capsule 300 mg PO DAILY #90 caps 07/17/23 03/09/24 Rx sitagliptin phos 100 mg-metformin 1 tab PO DAILY 09/23/23 03/09/24 History ER 1,000 mg tablet,extend rel 24h mp (Janumet XR) atorvastatin 40 mg tablet 40 mg PO HS 30 days #90 tabs 01/05/24 03/09/24 Rx empagliflozin 10 mg tablet 10 mg PO DAILY Diabetes #90 tabs 01/05/24 03/09/24 Rx (Jardiance) metoprolol succinate 100 mg 150 mg PO BID 03/09/24 03/09/24 History tablet,extended release 24 hr New Prescriptions to Start Prescriptions: Allergies Allergy/AdvReac Type Severity Reaction Status Date / Time chlorpromazine (From Allergy Unknown DRAWING OF Verified 03/09/24 10:05 THORAZINE) MOUTH Exam Data for Last 24 hours Vital signs and Labs for Last 24 Hours: Temp Pulse Resp BP Pulse Ox O2 Del Method 97.5 F L 66 16 155/86 H 100 Room Air 03/09/24 10:08 03/09/24 10:08 03/09/24 10:08 03/09/24 10:08 03/09/24 10:08 03/09/24 10:08 Laboratory Results - last 24 hr 03/09/24 10:12: POC Glucose 78 I & O for Last 24 hours: Intake & Output 03/06/24 03/07/24 03/08/24 03/09/24 23:59 23:59 23:59 23:59 Weight 168 lb *Routine HEENT Exam Head: Present normocephalic Eye: Present EOMI and PERRL ENT: Present mucous membranes moist *Routine Neck Exam Neck: Present supple *Routine Respiratory Exam Respiratory: Present CTA bilaterally *Routine Cardiovascular Exam Cardiovascular: Present RRR *Routine Abdominal Exam Abdominal: Present soft and normoactive bowel sounds; Absent tenderness *Routine Rectal Exam Rectal:: deferred *Routine Genitalia Exam Genitalia:: deferred *Routine Extremities Exam Extremities: Absent cyanosis, clubbing or edema *Routine Skin Exam Skin: Present warm; Absent rash *Routine Neurological Exam Neurological: Present alert and oriented X3 Assessment and Plan *Assessment and plan (1) Screening for malignant neoplasm of colon: Status: Acute Category: Medical Code(s): Z12.11 - Encounter for screening for malignant neoplasm of colon Plan A/P: 1. Screening/surveillance colonoscopy is the preprocedural diagnosis. The patient will be anesthetized/sedated using MAC sedation. The patient has been seen and examined. Cardiac and lung assessment prior to the examination is stable. Proceed with planned surveillance colonoscopy
--- NOTE | 2024-03-09 12:14 | HMH.PROCNOTE ---
[facility] Procedure Note Date: 03/09/24 Time: 12:33 Procedure Note:: Colonoscopy Procedure Report: Colonoscopy with cold snare polypectomy Endoscopist: Arnoldo Hutchins II, MD Referring physician: Yunior Langford MD Date of Procedure: March 09, 2024 Equipment: Olympus 190 variable stiffness pediatric colonoscope Sedation: MAC sedation Indication: Mr. Weaver is a 68-year-old gentleman who is here for screening colonoscopy. His last colonoscopy was 9 or 10 years ago. He reports no abdominal pain, weight loss, change in his bowel habits or rectal bleeding. He reports no family history of colon cancer. In December, he was hospitalized with GI bleed from duodenal ulcers. He was started on Protonix twice daily and misoprostol. His most recent hemoglobin was 14.6 and hematocrit 42.4. He does have normal iron levels. His transaminases are also normal. Procedure: Prior to the procedure, a history and physical exam was performed, and patient's medications and allergies were reviewed. The risks, benefits and alternatives of the sedation and procedure were discussed with the patient. All questions were answered and informed consent was obtained. The patient was brought to the procedure room. Patient identification and proposed procedure were verified by the physician and the nurse. The patient was placed in a left lateral decubitus position and the scope was passed under direct vision. Throughout the procedure, the patient's blood pressure, pulse, and oxygen saturations were monitored continuously. The colonoscopy was accomplished without difficulty. The patient tolerated the procedure well. Findings: On digital rectal examination there was normal rectal tone. There were no external hemorrhoids. The colonoscope was introduced through the anal canal to the rectum and advanced to the cecum. The ileocecal valve and appendiceal orifice were identified. The scope was advanced a short distance into the ileum which appeared grossly normal. The scope was then withdrawn into the colon. There were 4 polyps (cecum x 1 (4 mm) ascending x 2 (4 and 5 mm) and descending x 1 (5 mm)). These were all removed via cold snare polypectomy. The cecal and ascending polyps were all placed in the cecal formalin jar. The remaining cecum, ascending and transverse colon and mucosa were grossly normal. There were scattered diverticuli throughout the descending and sigmoid colon (LEFT colon). The rectum itself was normal. Upon retroflexion within the rectum there were grade 1-2 internal hemorrhoids. The preparation was excellent throughout with Confluence Preparation Score of 9. The cecal time was 14 minutes. Impression: 1. Diminutive colonic polyps x 4 2. Left-sided diverticulosis 3. Grade 1-2 internal hemorrhoids Plan: I will follow-up the polyp histology and recommend repeat surveillance colonoscopy again in 5 years if the polyps are adenomatous. I would encourage psyllium bulking fiber supplementation on a long-term daily maintenance basis.
== END 2024-03-09 13:19 | disposition home or self-care (01) ==
PROVIDERS: PCP Internal Medicine; Visit Provider Internal Medicine Gastroenterology
PROC: (CPT 45385; principal; 2024-03-09 11:00)
DX: Z12.11 Encounter for screening for malignant neoplasm of colon (principal); K63.5 Polyp of colon; K57.30 Diverticulosis of large intestine without perforation or abscess without bleeding; K64.8 Other hemorrhoids; E11.9 Type 2 diabetes mellitus without complications; Z79.84 Long term (current) use of oral hypoglycemic drugs
CPT/HCPCS: 45385; 82962; J7120

== ENCOUNTER 2024-03-15 14:29 | Outpatient (CLI) | payer MEDICARE, SELFPAY ==
[2024-03-15 14:46] LABS: Hemoglobin A1C 8.1 % (4.0-6.0)
[2024-03-15 15:14] LABS: Alanine Aminotransferase 43 U/L (12-78); Albumin Level 4.3 g/dl (3.5-5.0); Albumin/Globulin Ratio 1.9 (1.1-1.8); Alkaline Phosphatase 84 U/L (38-126); Aspartate Amino Transferase 39 U/L (17-59); Bilirubin,Total 0.7 mg/dl (0.2-1.3); Blood Urea Nitrogen 18 mg/dl (9-20); Calcium 8.8 mg/dl (8.4-10.2); Carbon Dioxide 21 mmol/L (22.0-30.0); Chloride 105 mmol/L (98-107); Chol/HDL Ratio 3.1 (1-3.5); Cholesterol 96 mg/dl (140-200); Estimated Glomerular Filt Rate 112 ml/min (>60); GFR (African American) 136 ML/MIN (>60); Globulin 2.3 g/dL (1.3-3.2); Glucose 123 mg/dl (74-100); HDL Cholesterol 31 mg/dl (40-60); Sodium 139 mmol/L (136-145); Total Protein,Serum 6.6 g/dl (6.3-8.2); Triglycerides 146 mg/dl (30-150); VLDL Cholesterol 29 mg/dL (0-40)
[2024-03-15 15:25] LABS: Direct LDL Cholesterol 34.16 mg/dL (100-129)
== END 2024-03-15 23:59 | disposition home or self-care (01) ==
LOC: LAB.DROPOF 14:30
PROVIDERS: PCP Internal Medicine; Visit Provider Internal Medicine
DX: E78.5 Hyperlipidemia, unspecified (principal); E11.42 Type 2 diabetes mellitus with diabetic polyneuropathy; E11.59 Type 2 diabetes mellitus with other circulatory complications; I48.0 Paroxysmal atrial fibrillation; I10 Essential (primary) hypertension; Z79.84 Long term (current) use of oral hypoglycemic drugs; Z79.4 Long term (current) use of insulin
CPT/HCPCS: 80053; 80061; 83036

== ENCOUNTER 2024-09-15 09:00 | Outpatient (CLI) | payer MEDICARE, OTHER, SELFPAY ==
[2024-09-15 13:46] LABS: Hematocrit 49.9 % (42.0-52.0); Hemoglobin 16.7 g/dL (14.1-18.0); Immature Granulocytes % 0.8 %; Mean Corpuscular HGB Conc 33.5 g/dL (31.8-35.4); Mean Corpuscular Hemoglobin 29.8 pg (27.0-31.2); Mean Corpuscular Volume 89.1 fl (80-94); Nucleated Red Blood Cells % 0 %; Platelet Count 187 K/mm3 (142-424); Red Blood Count 5.60 M/mm3 (4.60-6.20); Red Cell Distribution Width-SD 45.4 fL; White Blood Count 11.5 K/mm3 (4.8-10.8)
[2024-09-15 13:58] LABS: Albumin Level 4.4 g/dl (3.5-5.0); Chloride 100 mmol/L (98-107); Potassium 4.0 mmoL/L (3.5-5.1); Sodium 134 mmol/L (136-145)
[2024-09-15 14:00] LABS: Alanine Aminotransferase 39 U/L (12-78); Aspartate Amino Transferase 33 U/L (17-59); Blood Urea Nitrogen 23 mg/dl (9-20); Creatinine,Serum 0.80 mg/dl (0.66-1.25); Estimated Glomerular Filt Rate 96 ml/min (>60); GFR (African American) 116 ML/MIN (>60)
[2024-09-15 14:01] LABS: Albumin/Globulin Ratio 1.8 (1.1-1.8); Alkaline Phosphatase 118 U/L (38-126); Anion Gap 13.0 mEq/L (5-15); Bilirubin,Total 0.6 mg/dl (0.2-1.3); Calcium 9.0 mg/dl (8.4-10.2); Carbon Dioxide 25 mmol/L (22.0-30.0); Cholesterol 100 mg/dl (140-200); Globulin 2.5 g/dL (1.3-3.2); Glucose 176 mg/dl (74-100); HDL Cholesterol 34 mg/dl (40-60); Total Protein,Serum 6.9 g/dl (6.3-8.2); Triglycerides 192 mg/dl (30-150)
[2024-09-15 14:34] LABS: Hemoglobin A1C 8.7 % (4.0-6.0)
--- OUTSIDE RECORDS SUMMARY | 2024-09-16 11:26 | XMS_ITS | Clinical Summary ---
Author Organization Healthcare Address [address] [place] [address] Care Team Providers Care Aging Room Operator Name Role Phone Yunior Langford MD Primary Care Provider Family History Medical History Relation Name Comments Hypertension Father Other cancer Father Relation Name Status Comments Father Social History Tobacco Use Types Packs/Day Years Used Date Smoking Tobacco: Never Sex and Gender Information Value Date Recorded Sex Assigned at Not on file Legal Sex Male 7:52 PM EDT Gender Identity Not on file Sexual Orientation Not on file Last Filed Vital Signs Vital Sign Reading Time Taken Comments Blood Pressure 86/58 10/29/2018 3:04 PM EDT Pulse 137 10/29/2018 3:04 PM EDT Temperature - - Respiratory Rate 18 10/29/2018 3:04 PM EDT Oxygen Saturation - - Inhaled Oxygen Concentration - - Weight 53.5 kg (117 lb 15.8 oz) 10/29/2018 3:04 PM EDT Height 167.6 cm (5' 6 ) 10/29/2018 3:04 PM EDT Body Mass Index 19.04 10/29/2018 3:04 PM EDT Plan of Treatment Not on file Care Teams Aging Room Operator Relationship Specialty Start Date End Date Yunior Langford MD [address] [facility] [address] [place] [address] PCP - General 06/22/20
--- OUTSIDE RECORDS SUMMARY | 2024-09-16 11:26 | XMS_ITS | Clinical Summary ---
Author Organization 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 buPROPion (WELLBUTRIN SR) 100 mg Oral tablet sustained-releas e 12 hrIndications:MD Pack (major depressive disorder), recurrent, severe, with psychosis (HCC) Take 100 mg by mouth daily. Active risperiDONE (RISPERDAL) 2 mg Oral TabletIndication s:MDD (major depressive disorder), recurrent, severe, with psychosis (HCC),Psychophys iological insomnia Take 2 mg by mouth nightly. Active Active Problems Problem Noted Date Diagnosed Date MDD (major depressive disord er), recurrent, severe, with psychosis 10/02/2018 Psychophysiological insomnia 10/02/2018 Social History Tobacco Use Types Packs/Day Years Used Date Smoking Tobacco: Never Assessed Sex and Gender Information Value Date Recorded Sex Assigned at Not on file Legal Sex Male 7:38 PM EDT Gender Identity Not on file Sexual Orientation Not on file Plan of Treatment Health Maintenance Due Date Last Done Comments Annual Wellness Exam 07/28/1958 Hepatitis C Screening 07/28/1973 DTaP/TDaP/Td (1 - Tdap) 07/28/1974 Cologuard 07/28/2000 Colon Cancer Screening 07/28/2000 Colonoscopy 07/28/2000 FIT 07/28/2000 Sigmoidoscopy 07/28/2000 Virtual Colonography 07/28/2000 Pneumococcal Vaccine 50+ (1 of 1 - PCV) 07/28/2005 Zoster (1 of 2) 07/28/2005 COVID-19 Vaccine (1 - 2024-2 5 season) 2023 Influenza Vaccine (#1) 2024 Hepatitis B Vaccine Aged Out No longe r eligible based on patient's age to complete this topic Meningococcal B Vaccine Aged Out No l onger eligible based on patient's age to complete this topic
== END 2024-09-15 23:59 | disposition home or self-care (01) ==
LOC: LAB.DROPOF 09-16 11:19
PROVIDERS: PCP Internal Medicine; Visit Provider Internal Medicine
DX: E11.59 Type 2 diabetes mellitus with other circulatory complications (principal); E11.42 Type 2 diabetes mellitus with diabetic polyneuropathy; I10 Essential (primary) hypertension; E78.2 Mixed hyperlipidemia
CPT/HCPCS: 80053; 80061; 82043; 82570; 83036; 85025